=== PATIENT | male | born 1950 | race Caucasian/White ===

== ENCOUNTER 2022-12-08 12:40 | Inpatient (IN) | payer MEDICARE ==
[~2022-12-08] VITALS: Ht 172.7 cm; Wt 54.5 kg
[2022-12-08] VITALS (18 sets, daily range): BP systolic 108–149; BP diastolic 58–79; TEMP 97.5–98.9; O2SAT 88–99
[2022-12-08] MEDS ORDERED: ASPI81TA26 PO (12:52)
[2022-12-08] MEDS ORDERED: NOXI1TAB PO (12:52)
[2022-12-08 15:16] LABS: BASO % 0.5 % (0.0-1.0); EOS % 0.2 % (0.0-3.0); HEMATOCRIT 35.2 % (42.0-52.0); HEMOGLOBIN 11.6 g/dl (13.5-17.5); LYMPH # 1.6 10^3/uL (1.5-5.0); LYMPH % 18.9 % (24.0-44.0); MEAN CORPUSCULAR HEMOGLOBIN 32.6 pg (27.0-33.0); MEAN CORPUSCULAR VOLUME 98.9 fl (80.0-96.0); MONO # 1.1 10^3/uL (0.0-0.8); MONO % 13.1 % (2.0-8.0); NEUTROPHILS # 5.7 10^3/uL (1.5-8.5); NEUTROPHILS % 66.8 % (36.0-66.0); PLATELET COUNT, AUTOMATED 137 10^3/uL (150-450); RED BLOOD COUNT 3.56 10^6/uL (4.30-6.10); WHITE BLOOD COUNT 8.5 10^3/uL (4.0-10.0)
[2022-12-08 15:31] LABS: ERYTHROCYTE SEDIMENTATION RATE 15 mm/hr (0-20)
[2022-12-08 15:40] LABS: LIPASE 13 U/L (12-53)
[2022-12-08 15:41] LABS: CK-MB VALUE MASS 4.6 NG/ML (<3.6)
[2022-12-08 15:45] LABS: ALBUMIN 2.5 G/DL (3.2-5.2); ALKALINE PHOSPHATASE 226 U/L (46-116); ALT/SGPT 19 U/L (7.0-40); AST/SGOT 24 U/L (<34); BILIRUBIN,DIRECT 0.5 MG/DL (<0.4); BILIRUBIN,TOTAL 0.8 MG/DL (0.3-1.2); BLOOD UREA NITROGEN 9 MG/DL (9-23); CALCIUM LEVEL 8.4 MG/DL (8.3-10.6); CARBON DIOXIDE LEVEL 29 MMOL/L (20-31); CHLORIDE LEVEL 103 MMOL/L (98-107); CPK CREATINE PHOSPHOKINASE 191 U/L (46-171); CREATININE FOR GFR 0.64 MG/DL (0.70-1.30); GLOMERULAR FILTRATION RATE > 60.0 (>42); GLUCOSE, FASTING 142 MG/DL (74-106); POTASSIUM SERUM 2.8 MMOL/L (3.5-5.1); SODIUM LEVEL 140 MMOL/L (136-145); TOTAL PROTEIN 5.9 G/DL (5.7-8.2)
[2022-12-08 16:19] LABS: INR 1.07; PARTIAL THROMBOPLASTIN TIME 28.8 SECONDS (24.8-34.2); PROTHROMBIN TIME 14.1 SECONDS (12.5-14.5)
[2022-12-08] MEDS ORDERED: KCL 10MEQ/100ML SWI (KRUN) 10 MEQ in IV 1 EA IV ONE (16:20)
[2022-12-08] MEDS ORDERED: POTASSIUM CHLORIDE 10MEQ SR TABLET PO ONE ×2 (16:20→17:55)
[2022-12-08 16:36] LABS: MAGNESIUM LEVEL 1.7 MG/DL (1.8-2.4)
[2022-12-08] MEDS ORDERED: ISOVUE-370 76% 100ML VIAL As Ordered ONE (17:39)
[2022-12-08] MEDS ORDERED: FUROSEMIDE 20MG/2ML VIAL IV ONE (17:55)
[2022-12-08] MEDS ORDERED: ACETAMINOPHEN TAB 650MG DOSE (2X325MG) PO PRN (17:55)
[2022-12-08] MEDS ORDERED: RIVAROXABAN 10MG TAB (XARELTO) PO SCH (18:00)
[2022-12-08 18:28] LABS: CHOLESTEROL LEVEL 90 MG/DL (<200); CHOLESTEROL RISK RATIO 1.89 (<5); HDL CHOLESTEROL 47.4 MG/DL (>40); NON-HDL-C 42.6 MG/DL; TRIGLYCERIDES LEVEL 58 MG/DL (<150)
[2022-12-08] MEDS ORDERED: MED REC IN PROGRESS XX SCH (18:35)
[2022-12-08 18:36] LABS: PROCALCITONIN <0.04 ng/ml
[2022-12-08] MEDS ORDERED: HOME MED LIST COMPLETE! XX SCH (18:45)
[2022-12-08] MEDS ORDERED: AZITHROMYCIN 250MG TABLET PO SCH (19:00)
[2022-12-08] MEDS: MAG SULF 1GM/100ML (MAG RUN) 1 GM in IV 1 EA IV SCH ×3 (19:00→20:00)
[2022-12-08 19:04] LABS: HEMOGLOBIN A1c 6.6 % (4.0-6.0)
[2022-12-08 19:08] LABS: INR 1.17; PROTHROMBIN TIME 15.1 SECONDS (12.5-14.5)
[2022-12-08] MEDS: IPRATROPIUM 0.5MG/ALBUTEROL 2.5MG INH SOL UD 3ML (DUONEB) NEB SCH (19:36)
[2022-12-08 19:59] LABS: HIV 1&2 SCREEN NEGATIVE (NEGATIVE)
[2022-12-08 20:06] LABS: HEPATITIS B CORE ANTIBODY IGM NEGATIVE (NEGATIVE)
[2022-12-08 20:08] LABS: BLOOD UREA NITROGEN 9 MG/DL (9-23); CALCIUM LEVEL 7.8 MG/DL (8.3-10.6); CARBON DIOXIDE LEVEL 32 MMOL/L (20-31); CHLORIDE LEVEL 104 MMOL/L (98-107); CREATININE FOR GFR 0.66 MG/DL (0.70-1.30); GLOMERULAR FILTRATION RATE > 60.0 (>42); GLUCOSE, FASTING 97 MG/DL (74-106); POTASSIUM SERUM 2.9 MMOL/L (3.5-5.1); SODIUM LEVEL 139 MMOL/L (136-145)
[2022-12-08] MEDS ORDERED: MIDAZOLAM INJ 2MG/2ML VIAL As Ordered ONE ×4 (20:08→21:16)
[2022-12-08] MEDS ORDERED: LIDOCAINE 2% MDV 20ML VIAL As Ordered ONE (20:09)
[2022-12-08] MEDS ORDERED: LIDOCAINE 1% MDV 20ML VIAL As Ordered ONE (20:25)
[2022-12-08] MEDS: VANICREAM MOISTURIZING SKIN CREAM 113GM TUBE TOP SCH (21:00)
[2022-12-08] MEDS: DOCUSATE SODIUM 100MG CAPSULE PO SCH (21:00)
[2022-12-08] MEDS ORDERED: ONDANSETRON 4MG 2ML VIAL As Ordered ONE (21:16)
[2022-12-08] MEDS ORDERED: ROCURONIUM BROMIDE 50MG/5ML VIAL As Ordered ONE (21:16)
[2022-12-08] MEDS ORDERED: fentaNYL 100 MCG/2 ML INJECTION As Ordered ONE ×2 (21:16→23:06)
[2022-12-08] MEDS ORDERED: KETAMINE HCL 200MG/20ML VIAL As Ordered ONE (21:16)
[2022-12-08] MEDS ORDERED: propofoL 200 MG/20 ML VIAL As Ordered ONE (21:16)
[2022-12-08] MEDS ORDERED: LIDOCAINE 2% 100MG/5ML SDV (FOR ANES.) As Ordered ONE (21:16)
[2022-12-08] MEDS ORDERED: PHENYLEPHRINE 10MG/ML 1ML VIAL As Ordered ONE (21:23)
[2022-12-08] MEDS ORDERED: ceFAZolin 2 GM/D5W 50 ML IV BAG As Ordered ONE ×2 (21:41→21:44)
[2022-12-08] MEDS ORDERED: MUPIROCIN 2% OINT 22 GM TUBE As Ordered ONE (21:43)
[2022-12-08] MEDS ORDERED: MIDAZOLAM INJ 2MG/2ML VIAL IV STA ×3 (21:55→22:30)
[2022-12-08] MEDS ORDERED: LIDOCAINE 1% MDV 20ML VIAL SC ONE (21:55)
[2022-12-08] MEDS ORDERED: MIDAZOLAM INJ 2MG/2ML VIAL IV ONE (21:55)
[2022-12-08] MEDS ORDERED: ETOMIDATE INJ 20MG/10ML VIAL As Ordered ONE (22:00)
[2022-12-08] MEDS ORDERED: ACETAMINOPHEN 1000MG 100ML IV BAG As Ordered ONE (22:35)
[2022-12-08] MEDS ORDERED: ePHEDrine SULFATE 25 MG/5 ML(5MG/ML) SYRINGE As Ordered ONE (23:15)
[2022-12-08] MEDS ORDERED: BISACODYL 10MG SUPP PR PRN (23:50)
[2022-12-08] MEDS ORDERED: LEVALBUTEROL 1.25MG/3ML NEB SOLN NEB PRN (23:50)
[2022-12-08] MEDS ORDERED: PERCOCET 5MG/325MG TAB PO PRN ×2 (23:50)
[2022-12-08] MEDS ORDERED: ONDANSETRON 4MG 2ML VIAL IV PRN (23:50)
[2022-12-09] VITALS (33 sets, daily range): BP systolic 83–155; BP diastolic 48–92; TEMP 96.8–98; O2SAT 91–99
[2022-12-09] MEDS ORDERED: PROPOFOL 1,000 MG/100 ML VIAL As Ordered ONE (00:13)
[2022-12-09] MEDS ORDERED: MIDAZOLAM 5MG/ML 1ML VIAL IV PRN (00:15)
[2022-12-09] MEDS: propofoL 1,000 MG in IV 1 EA IV SCH ×2 (00:17→12:15)
[2022-12-09 00:34] LABS: ABG BASE EXCESS 3.2 (-2.0-2.0); ABG O2 SATURATION 92.6 % (95.0-99.0); ABG PARTIAL PRESSURE CO2 33.3 mmHg (35.0-45.0); ABG PARTIAL PRESSURE O2 61.7 mmHg (75.0-100.0); ABG STANDARD HCO3 27.3 MMOL/L. (22.0-26.0)
[2022-12-09] MEDS ORDERED: KCL 20MEQ in NS 1000ML 1,000 ML IV SCH (00:50)
[2022-12-09] MEDS: LEVALBUTEROL 1.25MG/3ML NEB SOLN NEB SCH ×4 (01:21→20:35)
[2022-12-09] MEDS: IPRATROPIUM 0.5MG/ALBUTEROL 2.5MG INH SOL UD 3ML (DUONEB) NEB SCH (01:22)
[2022-12-09] MEDS: KCL 20MEQ IN D5/NS 1000ML 1,000 ML IV SCH ×2 (01:30→13:45)
[2022-12-09] MEDS: KETOROLAC 30 MG/ML 1ML VIAL IV SCH ×4 (01:33→19:11)
[2022-12-09] MEDS ORDERED: MIDAZOLAM 100MG/100ML-0.9%NACL 100 MG in IV 1 EA IV SCH (04:20)
[2022-12-09 04:30] LABS: ABG BASE EXCESS 3.1 (-2.0-2.0); ABG HCO3 25.7 MMOL/L (22.0-26.0); ABG O2 SATURATION 94.9 % (95.0-99.0); ABG PARTIAL PRESSURE CO2 32.4 mmHg (35.0-45.0); ABG PARTIAL PRESSURE O2 71.8 mmHg (75.0-100.0); ABG STANDARD HCO3 27.2 MMOL/L. (22.0-26.0); ABG TOTAL CO2 26.7 MMOL/L (23.0-31.0); ABG pH (ARTERIAL) 7.517 UNITS (7.350-7.450)
[2022-12-09] MEDS ORDERED: HYDROMORPHONE HCL 0.5 MG/ 0.5 ML SYRINGE IV PRN (04:40)
[2022-12-09] MEDS ORDERED: MIDAZOLAM INJ 2MG/2ML VIAL IV ONE (05:00)
[2022-12-09 05:13] LABS: HEMATOCRIT 32.3 % (42.0-52.0); HEMOGLOBIN 11.2 g/dl (13.5-17.5); MEAN CORPUSCULAR HGB CONC 34.7 g/dl (32.0-36.5); MEAN CORPUSCULAR VOLUME 95.3 fl (80.0-96.0); PLATELET COUNT, AUTOMATED 149 10^3/uL (150-450); RED BLOOD COUNT 3.39 10^6/uL (4.30-6.10); WHITE BLOOD COUNT 11.3 10^3/uL (4.0-10.0)
[2022-12-09 05:25] LABS: BLOOD UREA NITROGEN 10 MG/DL (9-23); CARBON DIOXIDE LEVEL 27 MMOL/L (20-31); CHLORIDE LEVEL 103 MMOL/L (98-107); GLOMERULAR FILTRATION RATE > 60.0 (>42); GLUCOSE, FASTING 184 MG/DL (74-106); MAGNESIUM LEVEL 1.7 MG/DL (1.8-2.4); POTASSIUM SERUM 3.7 MMOL/L (3.5-5.1); SODIUM LEVEL 137 MMOL/L (136-145)
[2022-12-09 05:58] LABS: LYMPHOCYTES 5 % (16-44); MONOCYTES 1 % (0-5); NEUTROPHILS 94 % (28-66); PLATELET ESTIMATE DECREASED (NORMAL)
[2022-12-09 05:59] LABS: ANISOCYTOSIS 1+; BURR CELLS 1+; POLYCHROMASIA 1+
[2022-12-09 06:24] LABS: ABG BASE EXCESS 2.2 (-2.0-2.0); ABG HCO3 25.7 MMOL/L (22.0-26.0); ABG O2 SATURATION 95.9 % (95.0-99.0); ABG PARTIAL PRESSURE CO2 36.4 mmHg (35.0-45.0); ABG PARTIAL PRESSURE O2 82.7 mmHg (75.0-100.0); ABG STANDARD HCO3 26.4 MMOL/L. (22.0-26.0); ABG TOTAL CO2 26.8 MMOL/L (23.0-31.0); ABG pH (ARTERIAL) 7.467 UNITS (7.350-7.450)
[2022-12-09 07:10] LABS: AMPHETAMINES URINE REFLEX NEGATIVE (NEGATIVE)
[2022-12-09 07:11] LABS: BARBITURATES URINE REFLEX NEGATIVE (NEGATIVE); BENZODIAZEPINES URINE REFLEX PENDING CONFIRMATION (NEGATIVE); CANNABINOIDS URINE REFLEX NEGATIVE (NEGATIVE); COCAINE METABOLITE URINE REFLE NEGATIVE (NEGATIVE); METHADONE URINE REFLEX NEGATIVE (NEGATIVE); OPIATES URINE REFLEX NEGATIVE (NEGATIVE); PHENCYCLIDINE URINE REFLEX NEGATIVE (NEGATIVE)
[2022-12-09 07:58] LABS: THYROID STIMULATING HORMONE 2.053 uIU/ML (0.55-4.78)
[2022-12-09 07:59] LABS: FREE T4 1.09 NG/DL (0.89-1.76)
[2022-12-09] MEDS: DOCUSATE SODIUM 100MG CAPSULE PO SCH ×2 (09:00→20:23)
[2022-12-09] MEDS ORDERED: ASPIRIN 81MG CHEW TABLET PO SCH (09:00)
[2022-12-09] MEDS ORDERED: FUROSEMIDE 40MG/4ML VIAL IV SCH (09:00)
[2022-12-09] MEDS ORDERED: predniSONE 20 MG TAB PO SCH (09:00)
[2022-12-09] MEDS ORDERED: PANTOPRAZOLE 40MG VIAL IV SCH (09:00)
[2022-12-09] MEDS: HEPARIN SOD (PORCINE) 5000UNITS/ML 1ML VIAL/SYRINGE SC SCH ×2 (09:11→20:23)
[2022-12-09] MEDS: VANICREAM MOISTURIZING SKIN CREAM 113GM TUBE TOP SCH ×2 (09:11→20:23)
[2022-12-09] MEDS: NICOTINE 21MG/24HR 1 EA TRANSDERMAL TD SCH (09:12)
[2022-12-09 12:35] LABS: ABG HCO3 25.6 MMOL/L (22.0-26.0); ABG O2 SATURATION 89.3 % (95.0-99.0); ABG PARTIAL PRESSURE CO2 40.8 mmHg (35.0-45.0); ABG PARTIAL PRESSURE O2 59.5 mmHg (75.0-100.0); ABG STANDARD HCO3 25.2 MMOL/L. (22.0-26.0); ABG TOTAL CO2 26.9 MMOL/L (23.0-31.0); ABG pH (ARTERIAL) 7.416 UNITS (7.350-7.450)
[2022-12-09] MEDS: cefTRIAXone SOD 2 GM in D5W MINI-BAG PLUS 50 ML IV SCH (19:12)
[2022-12-09] MEDS ORDERED: NS 500 ML IV ONE (22:15)
[2022-12-10] VITALS (15 sets, daily range): BP systolic 92–144; BP diastolic 59–85; TEMP 97.3–98.1; O2SAT 90–100
[2022-12-10] MEDS: KETOROLAC 30 MG/ML 1ML VIAL IV SCH ×4 (00:50→19:20)
[2022-12-10] MEDS: LEVALBUTEROL 1.25MG/3ML NEB SOLN NEB SCH ×4 (01:18→20:04)
[2022-12-10] MEDS ORDERED: NS 500 ML IV ONE (02:25)
[2022-12-10 05:03] LABS: BASO % 0.1 % (0.0-1.0); HEMATOCRIT 29.7 % (42.0-52.0); LYMPH % 13.4 % (24.0-44.0); MEAN CORPUSCULAR HGB CONC 33.7 g/dl (32.0-36.5); MONO # 1.4 10^3/uL (0.0-0.8); MONO % 9.4 % (2.0-8.0); NEUTROPHILS # 11.3 10^3/uL (1.5-8.5); NEUTROPHILS % 76.6 % (36.0-66.0); PLATELET COUNT, AUTOMATED 135 10^3/uL (150-450); RED BLOOD COUNT 3.03 10^6/uL (4.30-6.10); WHITE BLOOD COUNT 14.7 10^3/uL (4.0-10.0)
[2022-12-10 05:22] LABS: BLOOD UREA NITROGEN 12 MG/DL (9-23); CALCIUM LEVEL 7.8 MG/DL (8.3-10.6); CARBON DIOXIDE LEVEL 28 MMOL/L (20-31); CHLORIDE LEVEL 106 MMOL/L (98-107); CREATININE FOR GFR 0.74 MG/DL (0.70-1.30); GLOMERULAR FILTRATION RATE > 60.0 (>42); GLUCOSE, FASTING 300 MG/DL (74-106); MAGNESIUM LEVEL 1.7 MG/DL (1.8-2.4); POTASSIUM SERUM 3.9 MMOL/L (3.5-5.1); SODIUM LEVEL 141 MMOL/L (136-145)
[2022-12-10] MEDS: KCL 20MEQ IN D5/NS 1000ML 1,000 ML IV SCH (06:02)
[2022-12-10 07:55] LABS: PH BODY FLUID > 7.800 UNITS (NOT ESTABLISHED); SOURCE, BODY FLUID pH PLEURAL
[2022-12-10 07:57] LABS: PH BODY FLUID > 7.800 UNITS (NOT ESTABLISHED); SOURCE, BODY FLUID pH PERICARDIAL
[2022-12-10 08:14] LABS: APPEARANCE, BODY FLUID TURBID (CLEAR); PLEURAL FL COLOR RED (COLORLESS); SOURCE, BODY FLUID PLEURAL
[2022-12-10 08:16] LABS: APPEARANCE, BODY FLUID TURBID (CLEAR); SOURCE, BODY FLUID PERICARDIAL; SOURCE, BODY FLUID ALBUMIN PERICARDIAL
[2022-12-10 08:21] LABS: SOURCE, BODY FLUID GLUCOSE PERICARDIAL
[2022-12-10 08:22] LABS: LDH, BODY FLUID 574 U/L (NOT ESTABLISHED); SOURCE, BODY FLUID LDH PERICARDIAL
[2022-12-10 08:23] LABS: SOURCE, BODY FLUID TOT PROTEIN PERICARDIAL; TOTAL PROTEIN, BODY FLUID 3.8 G/DL (NOT ESTABLISHED)
[2022-12-10 08:37] LABS: SOURCE, BODY FLUID LDH PLEURAL
[2022-12-10 08:48] LABS: LDH, BODY FLUID 2968 U/L (NOT ESTABLISHED)
[2022-12-10 08:49] LABS: AMYLASE, BODY FLUID 22 U/L (NOT ESTABLISHED); SOURCE, BODY FLUID AMYLASE PLEURAL; SOURCE, BODY FLUID GLUCOSE PLEURAL; SOURCE, BODY FLUID TOT PROTEIN PLEURAL; TOTAL PROTEIN, BODY FLUID 5.3 G/DL (NOT ESTABLISHED)
[2022-12-10] MEDS: HEPARIN SOD (PORCINE) 5000UNITS/ML 1ML VIAL/SYRINGE SC SCH ×3 (09:00→20:16)
[2022-12-10] MEDS: NICOTINE 21MG/24HR 1 EA TRANSDERMAL TD SCH (09:33)
[2022-12-10] MEDS: PANTOPRAZOLE 40MG TAB (PROTONIX) PO SCH (09:33)
[2022-12-10] MEDS: DOCUSATE SODIUM 100MG CAPSULE PO SCH ×2 (09:33→20:16)
[2022-12-10] MEDS: VANICREAM MOISTURIZING SKIN CREAM 113GM TUBE TOP SCH ×2 (09:34→20:17)
[2022-12-10] MEDS: methylPREDNISolone 40MG 1ML VIAL IV SCH ×2 (11:20→17:24)
[2022-12-10] MEDS ORDERED: GLUCAGON INJ 1MG VIAL SC PRN (13:55)
[2022-12-10] MEDS ORDERED: GLUCOSE 4GM CHEW TABLET PO PRN (13:55)
[2022-12-10] MEDS ORDERED: DEXTROSE 50% 50ML SYRINGE IV PRN (13:55)
[2022-12-10] MEDS: MAG SULF 1GM/100ML (MAG RUN) 1 GM in IV 1 EA IV SCH ×2 (14:07→15:14)
[2022-12-10] MEDS: INSULIN LISPRO (NovoLOG) PER UNIT SC SCH ×2 (17:23→20:25)
[2022-12-10] MEDS: cefTRIAXone SOD 2 GM in D5W MINI-BAG PLUS 50 ML IV SCH (17:24)
[2022-12-11] VITALS (16 sets, daily range): BP systolic 102–151; BP diastolic 62–86; TEMP 97.6–98.6; O2SAT 88–100
[2022-12-11] MEDS: KCL 20MEQ IN D5/NS 1000ML 1,000 ML IV SCH ×2 (00:05→07:26)
[2022-12-11] MEDS: KETOROLAC 30 MG/ML 1ML VIAL IV SCH ×4 (00:05→18:34)
[2022-12-11] MEDS: LEVALBUTEROL 1.25MG/3ML NEB SOLN NEB SCH ×4 (01:30→21:05)
[2022-12-11] MEDS: methylPREDNISolone 40MG 1ML VIAL IV SCH ×3 (02:09→18:34)
[2022-12-11 06:08] LABS: ABG BASE EXCESS 0.7 (-2.0-2.0); ABG HCO3 24.3 MMOL/L (22.0-26.0); ABG O2 SATURATION 91.9 % (95.0-99.0); ABG PARTIAL PRESSURE CO2 35.4 mmHg (35.0-45.0); ABG PARTIAL PRESSURE O2 61.5 mmHg (75.0-100.0); ABG TOTAL CO2 25.4 MMOL/L (23.0-31.0); ABG pH (ARTERIAL) 7.455 UNITS (7.350-7.450)
[2022-12-11 07:20] LABS: BASO % 0.1 % (0.0-1.0); HEMATOCRIT 31.7 % (42.0-52.0); HEMOGLOBIN 10.5 g/dl (13.5-17.5); LYMPH # 0.8 10^3/uL (1.5-5.0); MEAN CORPUSCULAR HEMOGLOBIN 33.2 pg (27.0-33.0); MEAN CORPUSCULAR HGB CONC 33.1 g/dl (32.0-36.5); MEAN CORPUSCULAR VOLUME 100.3 fl (80.0-96.0); MONO # 0.5 10^3/uL (0.0-0.8); MONO % 3.7 % (2.0-8.0); NEUTROPHILS % 89.8 % (36.0-66.0); PLATELET COUNT, AUTOMATED 137 10^3/uL (150-450); RED BLOOD COUNT 3.16 10^6/uL (4.30-6.10); WHITE BLOOD COUNT 13.4 10^3/uL (4.0-10.0)
[2022-12-11 07:39] LABS: LDH LACTATE DEHYDROGENASE 249 U/L (120-246)
[2022-12-11 07:41] LABS: ALBUMIN 2.3 G/DL (3.2-5.2); BLOOD UREA NITROGEN 13 MG/DL (9-23); CALCIUM LEVEL 7.9 MG/DL (8.3-10.6); CARBON DIOXIDE LEVEL 26 MMOL/L (20-31); CHLORIDE LEVEL 105 MMOL/L (98-107); CREATININE FOR GFR 0.74 MG/DL (0.70-1.30); GLOMERULAR FILTRATION RATE > 60.0 (>42); GLUCOSE, FASTING 343 MG/DL (74-106); PHOSPHORUS LEVEL 2.2 MG/DL (2.4-5.1); POTASSIUM SERUM 5.3 MMOL/L (3.5-5.1); SODIUM LEVEL 138 MMOL/L (136-145)
[2022-12-11 07:48] LABS: ALBUMIN 2.4 G/DL (3.2-5.2); ALKALINE PHOSPHATASE 172 U/L (46-116); ALT/SGPT 15 U/L (7.0-40); AST/SGOT 19 U/L (<34); BILIRUBIN,TOTAL 0.4 MG/DL (0.3-1.2); BLOOD UREA NITROGEN 14 MG/DL (9-23); BLOOD UREA NITROGEN 9 MG/DL (9-23); CALCIUM LEVEL 8.7 MG/DL (8.3-10.6); CARBON DIOXIDE LEVEL 25 MMOL/L (20-31); CARBON DIOXIDE LEVEL 26 MMOL/L (20-31); CHLORIDE LEVEL 104 MMOL/L (98-107); CHOLESTEROL LEVEL 96 MG/DL (<200); CPK CREATINE PHOSPHOKINASE 228 U/L (46-171); CREATININE FOR GFR 0.74 MG/DL (0.70-1.30); CREATININE FOR GFR 0.76 MG/DL (0.70-1.30); GLOMERULAR FILTRATION RATE > 60.0 (>42); GLUCOSE, FASTING 335 MG/DL (74-106); GLUCOSE, FASTING 344 MG/DL (74-106); MAGNESIUM LEVEL 1.9 MG/DL (1.8-2.4); PHOSPHORUS LEVEL 2.2 MG/DL (2.4-5.1); POTASSIUM SERUM 5.4 MMOL/L (3.5-5.1); POTASSIUM SERUM 5.6 MMOL/L (3.5-5.1); SODIUM LEVEL 135 MMOL/L (136-145); SODIUM LEVEL 136 MMOL/L (136-145); TOTAL PROTEIN 5.6 G/DL (5.7-8.2); TRIGLYCERIDES LEVEL 55 MG/DL (<150)
[2022-12-11] MEDS: HEPARIN SOD (PORCINE) 5000UNITS/ML 1ML VIAL/SYRINGE SC SCH ×2 (08:17→20:22)
[2022-12-11] MEDS: PANTOPRAZOLE 40MG TAB (PROTONIX) PO SCH (08:17)
[2022-12-11] MEDS: DOCUSATE SODIUM 100MG CAPSULE PO SCH ×2 (08:17→20:22)
[2022-12-11] MEDS: NICOTINE 21MG/24HR 1 EA TRANSDERMAL TD SCH (08:18)
[2022-12-11] MEDS: INSULIN LISPRO (NovoLOG) PER UNIT SC SCH ×4 (08:18→20:22)
[2022-12-11] MEDS: VANICREAM MOISTURIZING SKIN CREAM 113GM TUBE TOP SCH ×2 (08:19→20:22)
[2022-12-11] MEDS ORDERED: FUROSEMIDE 40MG/4ML VIAL IV ONE (08:25)
[2022-12-11] MEDS ORDERED: LEVEMIR (INSULIN DETEMIR) 1 UNITS/0.01ML SC SCH (09:00)
[2022-12-11 09:21] LABS: HEMOGLOBIN A1c 6.8 % (4.0-6.0)
[2022-12-11] MEDS ORDERED: SODIUM PHOSPHATE INJ 30 MMOL in D5W 500 ML IV ONE (11:00)
[2022-12-11] MEDS: COLCHICINE 0.6 MG TABLET PO SCH (11:37)
[2022-12-11] MEDS: MOM 30ML SUSPENSION UDC PO PRN (18:34)
[2022-12-11] MEDS: cefTRIAXone SOD 2 GM in D5W MINI-BAG PLUS 50 ML IV SCH (18:35)
[2022-12-12] VITALS (15 sets, daily range): BP systolic 104–134; BP diastolic 57–81; TEMP 97.6–98.6; O2SAT 85–100
[2022-12-12] MEDS: KETOROLAC 30 MG/ML 1ML VIAL IV SCH ×4 (00:25→18:45)
[2022-12-12] MEDS: methylPREDNISolone 40MG 1ML VIAL IV SCH ×3 (01:52→20:09)
[2022-12-12] MEDS: LEVALBUTEROL 1.25MG/3ML NEB SOLN NEB SCH ×4 (02:00→19:13)
[2022-12-12 05:37] LABS: BASO % 0.1 % (0.0-1.0); HEMATOCRIT 29.5 % (42.0-52.0); HEMOGLOBIN 9.7 g/dl (13.5-17.5); LYMPH # 1.2 10^3/uL (1.5-5.0); LYMPH % 8.7 % (24.0-44.0); MEAN CORPUSCULAR HEMOGLOBIN 32.8 pg (27.0-33.0); MEAN CORPUSCULAR HGB CONC 32.9 g/dl (32.0-36.5); MEAN CORPUSCULAR VOLUME 99.7 fl (80.0-96.0); MONO # 0.7 10^3/uL (0.0-0.8); MONO % 5.1 % (2.0-8.0); NEUTROPHILS # 11.4 10^3/uL (1.5-8.5); NEUTROPHILS % 85.5 % (36.0-66.0); PLATELET COUNT, AUTOMATED 128 10^3/uL (150-450); RED BLOOD COUNT 2.96 10^6/uL (4.30-6.10); WHITE BLOOD COUNT 13.3 10^3/uL (4.0-10.0)
[2022-12-12 05:51] LABS: ABG BASE EXCESS 3.4 (-2.0-2.0); ABG HCO3 27.1 MMOL/L (22.0-26.0); ABG O2 SATURATION 92.9 % (95.0-99.0); ABG PARTIAL PRESSURE CO2 37.8 mmHg (35.0-45.0); ABG PARTIAL PRESSURE O2 63.1 mmHg (75.0-100.0); ABG STANDARD HCO3 27.4 MMOL/L. (22.0-26.0); ABG TOTAL CO2 28.3 MMOL/L (23.0-31.0); ABG pH (ARTERIAL) 7.474 UNITS (7.350-7.450)
[2022-12-12 05:58] LABS: BLOOD UREA NITROGEN 15 MG/DL (9-23); CALCIUM LEVEL 8.6 MG/DL (8.3-10.6); CARBON DIOXIDE LEVEL 28 MMOL/L (20-31); CHLORIDE LEVEL 104 MMOL/L (98-107); CREATININE FOR GFR 0.67 MG/DL (0.70-1.30); GLOMERULAR FILTRATION RATE > 60.0 (>42); GLUCOSE, FASTING 242 MG/DL (74-106); MAGNESIUM LEVEL 2.1 MG/DL (1.8-2.4); PHOSPHORUS LEVEL 2.8 MG/DL (2.4-5.1); POTASSIUM SERUM 4.4 MMOL/L (3.5-5.1); SODIUM LEVEL 138 MMOL/L (136-145)
[2022-12-12] MEDS: INSULIN LISPRO (NovoLOG) PER UNIT SC SCH ×4 (09:28→20:10)
[2022-12-12] MEDS: NICOTINE 21MG/24HR 1 EA TRANSDERMAL TD SCH (09:28)
[2022-12-12] MEDS: VANICREAM MOISTURIZING SKIN CREAM 113GM TUBE TOP SCH ×2 (09:29→20:12)
[2022-12-12] MEDS: PANTOPRAZOLE 40MG TAB (PROTONIX) PO SCH (09:29)
[2022-12-12] MEDS: DOCUSATE SODIUM 100MG CAPSULE PO SCH ×2 (09:29→20:09)
[2022-12-12] MEDS: HEPARIN SOD (PORCINE) 5000UNITS/ML 1ML VIAL/SYRINGE SC SCH ×2 (09:29→20:11)
[2022-12-12] MEDS: COLCHICINE 0.6 MG TABLET PO SCH (09:29)
[2022-12-12] MEDS ORDERED: LEVEMIR (INSULIN DETEMIR) 1 UNITS/0.01ML SC SCH (10:43)
[2022-12-12] MEDS ORDERED: FUROSEMIDE 40MG/4ML VIAL IV ONE (13:05)
[2022-12-12] MEDS: cefTRIAXone SOD 2 GM in D5W MINI-BAG PLUS 50 ML IV SCH (17:39)
[2022-12-12] MEDS: FUROSEMIDE 20MG/2ML VIAL IV SCH (19:57)
[2022-12-12] MEDS: MOM 30ML SUSPENSION UDC PO PRN (20:10)
[2022-12-12] MEDS: LEVEMIR (INSULIN DETEMIR) 1 UNITS/0.01ML SC SCH (20:11)
[2022-12-13] VITALS (16 sets, daily range): BP systolic 100–133; BP diastolic 52–83; TEMP 97.5–99.3; O2SAT 86–97
[2022-12-13] MEDS: KETOROLAC 30 MG/ML 1ML VIAL IV SCH ×4 (00:42→18:07)
[2022-12-13] MEDS: LEVALBUTEROL 1.25MG/3ML NEB SOLN NEB SCH ×4 (01:11→19:03)
[2022-12-13] MEDS: HYDROMORPHONE HCL 0.5 MG/ 0.5 ML SYRINGE IV PRN (02:30)
[2022-12-13 04:47] LABS: BASO % 0.1 % (0.0-1.0); HEMATOCRIT 27.1 % (42.0-52.0); LYMPH # 1.4 10^3/uL (1.5-5.0); LYMPH % 11.8 % (24.0-44.0); MEAN CORPUSCULAR HEMOGLOBIN 33.2 pg (27.0-33.0); MEAN CORPUSCULAR HGB CONC 33.2 g/dl (32.0-36.5); MONO # 0.8 10^3/uL (0.0-0.8); MONO % 6.4 % (2.0-8.0); NEUTROPHILS # 9.7 10^3/uL (1.5-8.5); NEUTROPHILS % 81.2 % (36.0-66.0); PLATELET COUNT, AUTOMATED 134 10^3/uL (150-450); RED BLOOD COUNT 2.71 10^6/uL (4.30-6.10)
[2022-12-13 05:14] LABS: ALBUMIN 3.6 G/DL (3.2-5.2); ALKALINE PHOSPHATASE 130 U/L (46-116); ALT/SGPT 18 U/L (7.0-40); AST/SGOT 17 U/L (<34); BILIRUBIN,TOTAL 0.4 MG/DL (0.3-1.2); BLOOD UREA NITROGEN 16 MG/DL (9-23); CALCIUM LEVEL 8.7 MG/DL (8.3-10.6); CARBON DIOXIDE LEVEL 30 MMOL/L (20-31); CHLORIDE LEVEL 103 MMOL/L (98-107); CREATININE FOR GFR 0.79 MG/DL (0.70-1.30); GLOMERULAR FILTRATION RATE > 60.0 (>42); GLUCOSE, FASTING 99 MG/DL (74-106); MAGNESIUM LEVEL 2.6 MG/DL (1.8-2.4); PHOSPHORUS LEVEL 2.8 MG/DL (2.4-5.1); POTASSIUM SERUM 3.9 MMOL/L (3.5-5.1); SODIUM LEVEL 141 MMOL/L (136-145); TOTAL PROTEIN 5.9 G/DL (5.7-8.2)
[2022-12-13] MEDS: INSULIN LISPRO (NovoLOG) PER UNIT SC SCH ×4 (07:30→20:41)
[2022-12-13] MEDS: NICOTINE 21MG/24HR 1 EA TRANSDERMAL TD SCH (08:04)
[2022-12-13] MEDS: COLCHICINE 0.6 MG TABLET PO SCH (08:05)
[2022-12-13] MEDS: DOCUSATE SODIUM 100MG CAPSULE PO SCH ×2 (08:05→20:41)
[2022-12-13] MEDS: VANICREAM MOISTURIZING SKIN CREAM 113GM TUBE TOP SCH ×2 (08:05→20:42)
[2022-12-13] MEDS: HEPARIN SOD (PORCINE) 5000UNITS/ML 1ML VIAL/SYRINGE SC SCH ×2 (08:07→20:42)
[2022-12-13] MEDS: FUROSEMIDE 20MG/2ML VIAL IV SCH (08:07)
[2022-12-13] MEDS: methylPREDNISolone 40MG 1ML VIAL IV SCH ×2 (08:08→20:41)
[2022-12-13] MEDS: PANTOPRAZOLE 40MG TAB (PROTONIX) PO SCH (08:09)
[2022-12-13] MEDS ORDERED: FUROSEMIDE 40MG/4ML VIAL IV ONE (15:00)
[2022-12-13] MEDS: cefTRIAXone SOD 2 GM in D5W MINI-BAG PLUS 50 ML IV SCH (18:06)
[2022-12-13] MEDS: LEVEMIR (INSULIN DETEMIR) 1 UNITS/0.01ML SC SCH (20:41)
[2022-12-14] VITALS (8 sets, daily range): BP systolic 109–119; BP diastolic 57–80; TEMP 98.1–99.5; O2SAT 89–98
[2022-12-14] MEDS: LEVALBUTEROL 1.25MG/3ML NEB SOLN NEB SCH ×4 (01:21→19:50)
[2022-12-14 04:43] LABS: HEMATOCRIT 27.5 % (42.0-52.0); HEMOGLOBIN 9.2 g/dl (13.5-17.5); LYMPH % 8.7 % (24.0-44.0); MEAN CORPUSCULAR HEMOGLOBIN 33.1 pg (27.0-33.0); MEAN CORPUSCULAR HGB CONC 33.5 g/dl (32.0-36.5); MEAN CORPUSCULAR VOLUME 98.9 fl (80.0-96.0); MONO # 0.7 10^3/uL (0.0-0.8); MONO % 6.7 % (2.0-8.0); NEUTROPHILS # 9.1 10^3/uL (1.5-8.5); PLATELET COUNT, AUTOMATED 132 10^3/uL (150-450); RED BLOOD COUNT 2.78 10^6/uL (4.30-6.10); WHITE BLOOD COUNT 10.9 10^3/uL (4.0-10.0)
[2022-12-14 05:11] LABS: BLOOD UREA NITROGEN 19 MG/DL (9-23); CALCIUM LEVEL 8.7 MG/DL (8.3-10.6); CARBON DIOXIDE LEVEL 31 MMOL/L (20-31); CHLORIDE LEVEL 100 MMOL/L (98-107); CREATININE FOR GFR 0.85 MG/DL (0.70-1.30); GLOMERULAR FILTRATION RATE > 60.0 (>42); GLUCOSE, FASTING 234 MG/DL (74-106); MAGNESIUM LEVEL 2.2 MG/DL (1.8-2.4); POTASSIUM SERUM 3.8 MMOL/L (3.5-5.1); SODIUM LEVEL 137 MMOL/L (136-145)
[2022-12-14 05:15] LABS: ALBUMIN 3.5 G/DL (3.2-5.2); ALKALINE PHOSPHATASE 130 U/L (46-116); ALT/SGPT 20 U/L (7.0-40); AST/SGOT 11 U/L (<34); BILIRUBIN,TOTAL 0.4 MG/DL (0.3-1.2); BLOOD UREA NITROGEN 19 MG/DL (9-23); CALCIUM LEVEL 8.8 MG/DL (8.3-10.6); CARBON DIOXIDE LEVEL 31 MMOL/L (20-31); CHLORIDE LEVEL 99 MMOL/L (98-107); CREATININE FOR GFR 0.83 MG/DL (0.70-1.30); GLOMERULAR FILTRATION RATE > 60.0 (>42); GLUCOSE, FASTING 235 MG/DL (74-106); PHOSPHORUS LEVEL 3.1 MG/DL (2.4-5.1); POTASSIUM SERUM 3.7 MMOL/L (3.5-5.1); SODIUM LEVEL 137 MMOL/L (136-145); TOTAL PROTEIN 5.6 G/DL (5.7-8.2)
[2022-12-14 06:07] LABS: ABG BASE EXCESS 6.4 (-2.0-2.0); ABG HCO3 30.9 MMOL/L (22.0-26.0); ABG O2 SATURATION 92.3 % (95.0-99.0); ABG PARTIAL PRESSURE CO2 44.1 mmHg (35.0-45.0); ABG PARTIAL PRESSURE O2 64.1 mmHg (75.0-100.0); ABG STANDARD HCO3 30.2 MMOL/L. (22.0-26.0); ABG TOTAL CO2 32.2 MMOL/L (23.0-31.0); ABG pH (ARTERIAL) 7.463 UNITS (7.350-7.450)
[2022-12-14] MEDS ORDERED: FUROSEMIDE 40MG/4ML VIAL IV ONE (08:05)
[2022-12-14] MEDS: DOCUSATE SODIUM 100MG CAPSULE PO SCH ×2 (08:12→21:48)
[2022-12-14] MEDS ORDERED: CLINDAMYCIN 300 MG in IV 1 EA IV SCH (08:15)
[2022-12-14] MEDS: COLCHICINE 0.6 MG TABLET PO SCH (08:22)
[2022-12-14] MEDS: NICOTINE 21MG/24HR 1 EA TRANSDERMAL TD SCH (08:23)
[2022-12-14] MEDS: PANTOPRAZOLE 40MG TAB (PROTONIX) PO SCH (08:23)
[2022-12-14] MEDS: INSULIN LISPRO (NovoLOG) PER UNIT SC SCH ×4 (08:24→21:00)
[2022-12-14] MEDS: HEPARIN SOD (PORCINE) 5000UNITS/ML 1ML VIAL/SYRINGE SC SCH ×2 (08:24→21:48)
[2022-12-14] MEDS: methylPREDNISolone 40MG 1ML VIAL IV SCH (08:24)
[2022-12-14] MEDS: VANICREAM MOISTURIZING SKIN CREAM 113GM TUBE TOP SCH ×2 (08:25→21:50)
[2022-12-14] MEDS ORDERED: POTASSIUM CHLORIDE 10MEQ SR TABLET PO SCH (09:00)
[2022-12-14] MEDS: cefTRIAXone SOD 2 GM in D5W MINI-BAG PLUS 50 ML IV SCH (17:14)
[2022-12-14] MEDS: FUROSEMIDE 40MG/4ML VIAL IV SCH (17:14)
[2022-12-14] MEDS: LEVEMIR (INSULIN DETEMIR) 1 UNITS/0.01ML SC SCH (21:49)
[2022-12-15] VITALS (9 sets, daily range): BP systolic 100–132; BP diastolic 55–67; TEMP 97.3–98.9; O2SAT 90–95
[2022-12-15] MEDS: LEVALBUTEROL 1.25MG/3ML NEB SOLN NEB SCH ×4 (01:28→19:26)
[2022-12-15 04:26] LABS: BASO % 0.1 % (0.0-1.0); EOS % 0.2 % (0.0-3.0); LYMPH # 3.2 10^3/uL (1.5-5.0); LYMPH % 21.2 % (24.0-44.0); MEAN CORPUSCULAR HEMOGLOBIN 32.9 pg (27.0-33.0); MEAN CORPUSCULAR HGB CONC 33.3 g/dl (32.0-36.5); MEAN CORPUSCULAR VOLUME 98.7 fl (80.0-96.0); MONO % 13.2 % (2.0-8.0); NEUTROPHILS # 9.8 10^3/uL (1.5-8.5); NEUTROPHILS % 64.6 % (36.0-66.0); PLATELET COUNT, AUTOMATED 150 10^3/uL (150-450); RED BLOOD COUNT 3.04 10^6/uL (4.30-6.10); WHITE BLOOD COUNT 15.3 10^3/uL (4.0-10.0)
[2022-12-15 04:58] LABS: ALBUMIN 3.5 G/DL (3.2-5.2); ALKALINE PHOSPHATASE 141 U/L (46-116); ALT/SGPT 24 U/L (7.0-40); AST/SGOT 18 U/L (<34); BILIRUBIN,TOTAL 0.4 MG/DL (0.3-1.2); BLOOD UREA NITROGEN 15 MG/DL (9-23); CALCIUM LEVEL 8.7 MG/DL (8.3-10.6); CARBON DIOXIDE LEVEL 32 MMOL/L (20-31); CHLORIDE LEVEL 100 MMOL/L (98-107); CREATININE FOR GFR 0.77 MG/DL (0.70-1.30); GLOMERULAR FILTRATION RATE > 60.0 (>42); GLUCOSE, FASTING 117 MG/DL (74-106); MAGNESIUM LEVEL 1.7 MG/DL (1.8-2.4); POTASSIUM SERUM 3.4 MMOL/L (3.5-5.1); SODIUM LEVEL 140 MMOL/L (136-145); TOTAL PROTEIN 5.7 G/DL (5.7-8.2)
[2022-12-15] MEDS ORDERED: MAG SULF 1GM/100ML (MAG RUN) 1 GM in IV 1 EA IV ONE (07:00)
[2022-12-15] MEDS ORDERED: KCL 10MEQ/100ML SWI (KRUN) 10 MEQ in IV 1 EA IV ONE (08:00)
[2022-12-15] MEDS: DOCUSATE SODIUM 100MG CAPSULE PO SCH ×2 (09:00→21:00)
[2022-12-15] MEDS: INSULIN LISPRO (NovoLOG) PER UNIT SC SCH ×4 (09:05→21:00)
[2022-12-15] MEDS: predniSONE 20 MG TAB PO SCH (09:05)
[2022-12-15] MEDS: PANTOPRAZOLE 40MG TAB (PROTONIX) PO SCH (09:06)
[2022-12-15] MEDS: COLCHICINE 0.6 MG TABLET PO SCH (09:06)
[2022-12-15] MEDS: FUROSEMIDE 40MG/4ML VIAL IV SCH ×2 (09:06→17:41)
[2022-12-15] MEDS: HEPARIN SOD (PORCINE) 5000UNITS/ML 1ML VIAL/SYRINGE SC SCH ×2 (09:06→21:25)
[2022-12-15] MEDS: VANICREAM MOISTURIZING SKIN CREAM 113GM TUBE TOP SCH ×2 (09:06→21:00)
[2022-12-15] MEDS: NICOTINE 21MG/24HR 1 EA TRANSDERMAL TD SCH (09:07)
[2022-12-15] MEDS: POTASSIUM CHLORIDE 10MEQ SR TABLET PO SCH ×2 (09:09→21:26)
[2022-12-15] MEDS: cefTRIAXone SOD 2 GM in D5W MINI-BAG PLUS 50 ML IV SCH (17:40)
[2022-12-15] MEDS: LEVEMIR (INSULIN DETEMIR) 1 UNITS/0.01ML SC SCH (21:25)
[2022-12-16] VITALS (7 sets, daily range): BP systolic 89–119; BP diastolic 54–62; TEMP 97.6–98.6; O2SAT 92–98
[2022-12-16] MEDS: HYDROMORPHONE HCL 0.5 MG/ 0.5 ML SYRINGE IV PRN
[2022-12-16] MEDS: LEVALBUTEROL 1.25MG/3ML NEB SOLN NEB SCH ×4 (01:19→19:53)
[2022-12-16 05:28] LABS: HEMATOCRIT 28.5 % (42.0-52.0); HEMOGLOBIN 9.8 g/dl (13.5-17.5); MEAN CORPUSCULAR HEMOGLOBIN 33.3 pg (27.0-33.0); MEAN CORPUSCULAR HGB CONC 34.4 g/dl (32.0-36.5); MEAN CORPUSCULAR VOLUME 96.9 fl (80.0-96.0); PLATELET COUNT, AUTOMATED 154 10^3/uL (150-450); RED BLOOD COUNT 2.94 10^6/uL (4.30-6.10); WHITE BLOOD COUNT 11.7 10^3/uL (4.0-10.0)
[2022-12-16 05:49] LABS: BLOOD UREA NITROGEN 17 MG/DL (9-23); CALCIUM LEVEL 8.6 MG/DL (8.3-10.6); CARBON DIOXIDE LEVEL 38 MMOL/L (20-31); CHLORIDE LEVEL 94 MMOL/L (98-107); CREATININE FOR GFR 0.67 MG/DL (0.70-1.30); GLOMERULAR FILTRATION RATE > 60.0 (>42); GLUCOSE, FASTING 144 MG/DL (74-106); MAGNESIUM LEVEL 1.7 MG/DL (1.8-2.4); POTASSIUM SERUM 3.3 MMOL/L (3.5-5.1); SODIUM LEVEL 135 MMOL/L (136-145)
[2022-12-16] MEDS ORDERED: MAG SULF 1GM/100ML (MAG RUN) 1 GM in IV 1 EA IV ONE ×2 (08:00→12:00)
[2022-12-16] MEDS: COLCHICINE 0.6 MG TABLET PO SCH (08:09)
[2022-12-16] MEDS: HEPARIN SOD (PORCINE) 5000UNITS/ML 1ML VIAL/SYRINGE SC SCH ×2 (08:10→19:55)
[2022-12-16] MEDS: PANTOPRAZOLE 40MG TAB (PROTONIX) PO SCH (08:10)
[2022-12-16] MEDS: FUROSEMIDE 40MG/4ML VIAL IV SCH ×2 (08:10→16:05)
[2022-12-16] MEDS: predniSONE 20 MG TAB PO SCH (08:10)
[2022-12-16] MEDS: VANICREAM MOISTURIZING SKIN CREAM 113GM TUBE TOP SCH ×2 (08:11→19:55)
[2022-12-16] MEDS: NICOTINE 21MG/24HR 1 EA TRANSDERMAL TD SCH (08:11)
[2022-12-16] MEDS: ACETAMINOPHEN TAB 650MG DOSE (2X325MG) PO PRN ×2 (08:12→14:40)
[2022-12-16] MEDS: INSULIN LISPRO (NovoLOG) PER UNIT SC SCH ×4 (08:12→19:49)
[2022-12-16] MEDS: DOCUSATE SODIUM 100MG CAPSULE PO SCH ×2 (08:54→19:35)
[2022-12-16] MEDS ORDERED: POTASSIUM CHLORIDE 10% LIQ 20MEQ/15ML UDC PO SCH (09:00)
[2022-12-16] MEDS: KCL 10MEQ/100ML SWI (KRUN) 10 MEQ in IV 1 EA IV SCH ×2 (09:23→11:23)
[2022-12-16] MEDS: LEVEMIR (INSULIN DETEMIR) 1 UNITS/0.01ML SC SCH (19:56)
[2022-12-17] MEDS: ACETAMINOPHEN TAB 650MG DOSE (2X325MG) PO PRN (00:04)
[2022-12-17] MEDS: LEVALBUTEROL 1.25MG/3ML NEB SOLN NEB SCH ×4 (01:07→20:03)
[2022-12-17 04:00] VITALS: BP 108/55; TEMP 97.7; O2SAT 94
[2022-12-17 05:36] LABS: BASO % 0.1 % (0.0-1.0); EOS # 0.1 10^3/uL (0.0-0.5); EOS % 0.3 % (0.0-3.0); HEMATOCRIT 26.2 % (42.0-52.0); HEMOGLOBIN 9.1 g/dl (13.5-17.5); LYMPH # 2.9 10^3/uL (1.5-5.0); LYMPH % 19.4 % (24.0-44.0); MEAN CORPUSCULAR HEMOGLOBIN 33.3 pg (27.0-33.0); MEAN CORPUSCULAR HGB CONC 34.7 g/dl (32.0-36.5); MONO % 13.6 % (2.0-8.0); NEUTROPHILS # 9.7 10^3/uL (1.5-8.5); NEUTROPHILS % 66.1 % (36.0-66.0); PLATELET COUNT, AUTOMATED 169 10^3/uL (150-450); RED BLOOD COUNT 2.73 10^6/uL (4.30-6.10); WHITE BLOOD COUNT 14.7 10^3/uL (4.0-10.0)
[2022-12-17 06:07] LABS: ALBUMIN 2.9 G/DL (3.2-5.2); ALKALINE PHOSPHATASE 152 U/L (46-116); ALT/SGPT 20 U/L (7.0-40); AST/SGOT 14 U/L (<34); BILIRUBIN,TOTAL 0.4 MG/DL (0.3-1.2); BLOOD UREA NITROGEN 19 MG/DL (9-23); CALCIUM LEVEL 8.7 MG/DL (8.3-10.6); CARBON DIOXIDE LEVEL 36 MMOL/L (20-31); CHLORIDE LEVEL 96 MMOL/L (98-107); CREATININE FOR GFR 0.84 MG/DL (0.70-1.30); GLOMERULAR FILTRATION RATE > 60.0 (>42); GLUCOSE, FASTING 69 MG/DL (74-106); MAGNESIUM LEVEL 1.9 MG/DL (1.8-2.4); SODIUM LEVEL 140 MMOL/L (136-145)
[2022-12-17] MEDS: INSULIN LISPRO (NovoLOG) PER UNIT SC SCH ×4 (07:30→19:54)
[2022-12-17] MEDS: DOCUSATE SODIUM 100MG CAPSULE PO SCH ×2 (07:42→19:55)
[2022-12-17 08:00] VITALS: BP 110/62; TEMP 98.4; O2SAT 94
[2022-12-17] MEDS ORDERED: KCL 10MEQ/100ML SWI (KRUN) 10 MEQ in IV 1 EA IV ONE ×2 (08:00→09:00)
[2022-12-17] MEDS: predniSONE 20 MG TAB PO SCH (08:51)
[2022-12-17] MEDS: HEPARIN SOD (PORCINE) 5000UNITS/ML 1ML VIAL/SYRINGE SC SCH ×2 (08:52→19:55)
[2022-12-17] MEDS: COLCHICINE 0.6 MG TABLET PO SCH (08:52)
[2022-12-17] MEDS: PANTOPRAZOLE 40MG TAB (PROTONIX) PO SCH (08:52)
[2022-12-17] MEDS: FUROSEMIDE 40MG/4ML VIAL IV SCH (08:52)
[2022-12-17] MEDS: VANICREAM MOISTURIZING SKIN CREAM 113GM TUBE TOP SCH ×2 (08:53→19:56)
[2022-12-17] MEDS: NICOTINE 21MG/24HR 1 EA TRANSDERMAL TD SCH (08:53)
[2022-12-17] MEDS: POTASSIUM CHLORIDE 10MEQ SR TABLET PO SCH ×2 (08:53→19:55)
[2022-12-17] MEDS ORDERED: POTASSIUM CHLORIDE 10% LIQ 20MEQ/15ML UDC PO SCH (09:00)
[2022-12-17 12:00] VITALS: BP 128/64; TEMP 97.9; O2SAT 96
[2022-12-17 16:00] VITALS: BP 108/61; TEMP 99.1; O2SAT 93
[2022-12-17] MEDS: HumuLIN N INSULIN (NovoLIN N) PER UNIT SC SCH (17:09)
[2022-12-17 19:54] VITALS: BP 109/58; TEMP 98.9; O2SAT 94
[2022-12-17] MEDS ORDERED: LEVEMIR (INSULIN DETEMIR) 1 UNITS/0.01ML SC SCH (21:00)
[2022-12-18 00:17] VITALS: BP 111/64; TEMP 97.7; O2SAT 91
[2022-12-18] MEDS: LEVALBUTEROL 1.25MG/3ML NEB SOLN NEB SCH ×5 (01:00→21:33)
[2022-12-18] MEDS: ACETAMINOPHEN TAB 650MG DOSE (2X325MG) PO PRN (03:56)
[2022-12-18 04:00] VITALS: BP 110/65; TEMP 98; O2SAT 93
[2022-12-18 04:37] LABS: BASO % 0.1 % (0.0-1.0); EOS % 0.1 % (0.0-3.0); HEMATOCRIT 28.2 % (42.0-52.0); HEMOGLOBIN 9.5 g/dl (13.5-17.5); LYMPH # 2.7 10^3/uL (1.5-5.0); MEAN CORPUSCULAR HEMOGLOBIN 32.5 pg (27.0-33.0); MEAN CORPUSCULAR HGB CONC 33.7 g/dl (32.0-36.5); MEAN CORPUSCULAR VOLUME 96.6 fl (80.0-96.0); MONO % 12.3 % (2.0-8.0); NEUTROPHILS # 9.8 10^3/uL (1.5-8.5); PLATELET COUNT, AUTOMATED 192 10^3/uL (150-450); RED BLOOD COUNT 2.92 10^6/uL (4.30-6.10); WHITE BLOOD COUNT 14.4 10^3/uL (4.0-10.0)
[2022-12-18 04:43] LABS: MONO # 1.8 10^3/uL (0.0-0.8)
[2022-12-18 05:11] LABS: ALBUMIN 2.9 G/DL (3.2-5.2); ALKALINE PHOSPHATASE 158 U/L (46-116); ALT/SGPT 21 U/L (7.0-40); AST/SGOT 17 U/L (<34); BILIRUBIN,TOTAL 0.5 MG/DL (0.3-1.2); BLOOD UREA NITROGEN 18 MG/DL (9-23); CALCIUM LEVEL 8.5 MG/DL (8.3-10.6); CARBON DIOXIDE LEVEL 34 MMOL/L (20-31); CHLORIDE LEVEL 96 MMOL/L (98-107); GLOMERULAR FILTRATION RATE > 60.0 (>42); GLUCOSE, FASTING 146 MG/DL (74-106); MAGNESIUM LEVEL 1.7 MG/DL (1.8-2.4); POTASSIUM SERUM 3.6 MMOL/L (3.5-5.1); SODIUM LEVEL 138 MMOL/L (136-145); TOTAL PROTEIN 5.2 G/DL (5.7-8.2)
[2022-12-18] MEDS: INSULIN LISPRO (NovoLOG) PER UNIT SC SCH ×3 (07:30→16:48)
[2022-12-18] MEDS: HumuLIN N INSULIN (NovoLIN N) PER UNIT SC SCH ×2 (07:30→18:24)
[2022-12-18 08:00] VITALS: BP 112/62; TEMP 98.5; O2SAT 92
[2022-12-18] MEDS: predniSONE 20 MG TAB PO SCH (08:32)
[2022-12-18] MEDS: POTASSIUM CHLORIDE 10MEQ SR TABLET PO SCH (08:32)
[2022-12-18] MEDS: PANTOPRAZOLE 40MG TAB (PROTONIX) PO SCH (08:32)
[2022-12-18] MEDS: FUROSEMIDE 40MG/4ML VIAL IV SCH (08:33)
[2022-12-18] MEDS: HEPARIN SOD (PORCINE) 5000UNITS/ML 1ML VIAL/SYRINGE SC SCH ×2 (08:33→20:05)
[2022-12-18] MEDS: VANICREAM MOISTURIZING SKIN CREAM 113GM TUBE TOP SCH ×2 (08:33→23:42)
[2022-12-18] MEDS: NICOTINE 21MG/24HR 1 EA TRANSDERMAL TD SCH (08:34)
[2022-12-18] MEDS: COLCHICINE 0.6 MG TABLET PO SCH (08:34)
[2022-12-18] MEDS: DOCUSATE SODIUM 100MG CAPSULE PO SCH ×2 (09:00→20:04)
[2022-12-18 12:00] VITALS: BP 105/57; TEMP 98.1; O2SAT 92
[2022-12-18 15:00] VITALS: BP 117/63; TEMP 99.5; O2SAT 95
[2022-12-18] MEDS: MAGNESIUM OXIDE 400MG TAB (MAG-OX) PO SCH (20:05)
[2022-12-18 22:00] VITALS: BP 115/62; TEMP 98.8; O2SAT 96
[2022-12-19] MEDS: LEVALBUTEROL 1.25MG/3ML NEB SOLN NEB SCH ×4 (01:12→21:04)
[2022-12-19] MEDS ORDERED: TAMSULOSIN 0.4 MG CAP PO ONE (04:00)
[2022-12-19 05:45] VITALS: BP 119/64; TEMP 98.6; O2SAT 100
[2022-12-19 07:57] LABS: HEMATOCRIT 28.7 % (42.0-52.0); HEMOGLOBIN 9.7 g/dl (13.5-17.5); MEAN CORPUSCULAR HEMOGLOBIN 33.1 pg (27.0-33.0); MEAN CORPUSCULAR HGB CONC 33.8 g/dl (32.0-36.5); PLATELET COUNT, AUTOMATED 222 10^3/uL (150-450); RED BLOOD COUNT 2.93 10^6/uL (4.30-6.10); WHITE BLOOD COUNT 16.3 10^3/uL (4.0-10.0)
[2022-12-19 08:22] LABS: ALBUMIN 2.9 G/DL (3.2-5.2); ALKALINE PHOSPHATASE 177 U/L (46-116); ALT/SGPT 32 U/L (7.0-40); AST/SGOT 31 U/L (<34); BILIRUBIN,TOTAL 0.6 MG/DL (0.3-1.2); BLOOD UREA NITROGEN 20 MG/DL (9-23); CALCIUM LEVEL 8.6 MG/DL (8.3-10.6); CARBON DIOXIDE LEVEL 33 MMOL/L (20-31); CHLORIDE LEVEL 99 MMOL/L (98-107); CREATININE FOR GFR 0.66 MG/DL (0.70-1.30); GLOMERULAR FILTRATION RATE > 60.0 (>42); GLUCOSE, FASTING 121 MG/DL (74-106); POTASSIUM SERUM 3.4 MMOL/L (3.5-5.1); SODIUM LEVEL 139 MMOL/L (136-145); TOTAL PROTEIN 5.3 G/DL (5.7-8.2)
[2022-12-19] MEDS: MAGNESIUM OXIDE 400MG TAB (MAG-OX) PO SCH ×2 (08:44→19:57)
[2022-12-19] MEDS: POTASSIUM CHLORIDE 10MEQ SR TABLET PO SCH (08:44)
[2022-12-19] MEDS: PANTOPRAZOLE 40MG TAB (PROTONIX) PO SCH (08:44)
[2022-12-19] MEDS: predniSONE 20 MG TAB PO SCH (08:44)
[2022-12-19] MEDS: COLCHICINE 0.6 MG TABLET PO SCH (08:44)
[2022-12-19] MEDS: INSULIN LISPRO (NovoLOG) PER UNIT SC SCH ×3 (08:45→17:40)
[2022-12-19] MEDS: NICOTINE 21MG/24HR 1 EA TRANSDERMAL TD SCH (08:46)
[2022-12-19] MEDS: DOCUSATE SODIUM 100MG CAPSULE PO SCH ×2 (08:46→19:52)
[2022-12-19] MEDS: HumuLIN N INSULIN (NovoLIN N) PER UNIT SC SCH (08:46)
[2022-12-19] MEDS: VANICREAM MOISTURIZING SKIN CREAM 113GM TUBE TOP SCH ×2 (08:47→19:57)
[2022-12-19] MEDS: HEPARIN SOD (PORCINE) 5000UNITS/ML 1ML VIAL/SYRINGE SC SCH ×2 (08:47→19:57)
[2022-12-19] MEDS: FUROSEMIDE 40MG/4ML VIAL IV SCH (08:47)
[2022-12-19] MEDS ORDERED: predniSONE 10MG TAB PO SCH (09:00)
[2022-12-19 14:00] VITALS: BP 124/68; TEMP 98.6; O2SAT 96
[2022-12-19 16:19] LABS: PROCALCITONIN 0.09 ng/ml
[2022-12-19] MEDS ORDERED: POTASSIUM CHLORIDE 10MEQ SR TABLET PO ONE (17:00)
[2022-12-19] MEDS ORDERED: FUROSEMIDE 40MG/4ML VIAL IV ONE (17:00)
[2022-12-19 22:00] VITALS: BP 124/66; TEMP 97.5; O2SAT 91
[2022-12-20] MEDS: LEVALBUTEROL 1.25MG/3ML NEB SOLN NEB SCH ×3 (02:00→12:51)
[2022-12-20 05:12] LABS: ANTI DS-DNA AB Negative (Negative)
[2022-12-20 06:00] VITALS: BP 118/69; TEMP 99; O2SAT 95
[2022-12-20 06:26] LABS: HEMATOCRIT 26.4 % (42.0-52.0); MEAN CORPUSCULAR HEMOGLOBIN 33.1 pg (27.0-33.0); MEAN CORPUSCULAR HGB CONC 34.1 g/dl (32.0-36.5); MEAN CORPUSCULAR VOLUME 97.1 fl (80.0-96.0); PLATELET COUNT, AUTOMATED 223 10^3/uL (150-450); RED BLOOD COUNT 2.72 10^6/uL (4.30-6.10); WHITE BLOOD COUNT 14.7 10^3/uL (4.0-10.0)
[2022-12-20 07:45] LABS: ALBUMIN 2.7 G/DL (3.2-5.2); ALKALINE PHOSPHATASE 181 U/L (46-116); ALT/SGPT 37 U/L (7.0-40); AST/SGOT 32 U/L (<34); BILIRUBIN,TOTAL 0.5 MG/DL (0.3-1.2); BLOOD UREA NITROGEN 20 MG/DL (9-23); CALCIUM LEVEL 8.2 MG/DL (8.3-10.6); CARBON DIOXIDE LEVEL 33 MMOL/L (20-31); CHLORIDE LEVEL 96 MMOL/L (98-107); GLOMERULAR FILTRATION RATE > 60.0 (>42); GLUCOSE, FASTING 305 MG/DL (74-106); MAGNESIUM LEVEL 1.5 MG/DL (1.8-2.4); POTASSIUM SERUM 3.6 MMOL/L (3.5-5.1); SODIUM LEVEL 136 MMOL/L (136-145)
[2022-12-20] MEDS ORDERED: predniSONE 10MG TAB PO SCH (09:00)
[2022-12-20] MEDS ORDERED: FERROUS SULFATE 325MG TAB PO SCH (09:00)
[2022-12-20] MEDS: DOCUSATE SODIUM 100MG CAPSULE PO SCH (09:44)
[2022-12-20] MEDS: NICOTINE 21MG/24HR 1 EA TRANSDERMAL TD SCH (09:44)
[2022-12-20] MEDS: HEPARIN SOD (PORCINE) 5000UNITS/ML 1ML VIAL/SYRINGE SC SCH (09:44)
[2022-12-20] MEDS: FUROSEMIDE 40MG/4ML VIAL IV SCH (09:44)
[2022-12-20] MEDS: POTASSIUM CHLORIDE 10MEQ SR TABLET PO SCH (09:45)
[2022-12-20] MEDS: COLCHICINE 0.6 MG TABLET PO SCH (09:45)
[2022-12-20] MEDS: PANTOPRAZOLE 40MG TAB (PROTONIX) PO SCH (09:45)
[2022-12-20] MEDS: MAGNESIUM OXIDE 400MG TAB (MAG-OX) PO SCH (09:45)
[2022-12-20] MEDS: VANICREAM MOISTURIZING SKIN CREAM 113GM TUBE TOP SCH (09:46)
[2022-12-20] MEDS: INSULIN LISPRO (NovoLOG) PER UNIT SC SCH ×3 (09:47→17:05)
[2022-12-20] MEDS ORDERED: PRED10TA2 PO (12:35)
[2022-12-20] MEDS ORDERED: PANT40TA29 PO (12:35)
[2022-12-20] MEDS ORDERED: MAGN400T2 PO ×2 (12:35→12:47)
[2022-12-20] MEDS ORDERED: LEVA1.2519 NEB (12:35)
[2022-12-20] MEDS ORDERED: COLA100C5 PO (12:35)
[2022-12-20] MEDS ORDERED: VANI1CRE5 TOP (12:35)
[2022-12-20] MEDS ORDERED: LASI40TA9 PO (12:35)
[2022-12-20] MEDS ORDERED: HEPA500023 SC (12:35)
[2022-12-20] MEDS ORDERED: COLC0.6T47 PO (12:35)
[2022-12-20] MEDS ORDERED: ACET1TAB55 PO (12:35)
[2022-12-20] MEDS ORDERED: FERR1TAB8 PO (12:35)
[2022-12-20] MEDS ORDERED: NICO21PAT TD (12:35)
[2022-12-20] MEDS ORDERED: POTA-136 PO (12:35)
[2022-12-20] MEDS ORDERED: INSUHUMDS SC (12:35)
[2022-12-20] MEDS ORDERED: MOM30SS2 PO (12:35)
[2022-12-20] MEDS ORDERED: POTASSIUM CHLORIDE 10MEQ SR TABLET PO ONE (17:15)
[2022-12-20] MEDS ORDERED: FUROSEMIDE 40MG/4ML VIAL IV ONE (17:15)
== END 2022-12-20 18:56 | DRG 270 ==
LOC: M ED 12:40 → M ED INP 17:55 → M ICU 17:55 → M MSPAV 12-18 14:50
PROVIDERS: ADMIT Student in an Organized Health Care Education/Training Program; ATTEND Internal Medicine
PROC: B246ZZZ Ultrasonography of Right and Left Heart (ICD-10-PCS; 2022-12-08)
PROC: 0W9D00Z Drainage of Pericardial Cavity with Drainage Device, Open Approach (ICD-10-PCS; principal; 2022-12-11)
PROC: 0PB00ZZ Excision of Sternum, Open Approach (ICD-10-PCS; 2022-12-11)
PROC: 30233J1 Transfusion of Nonautologous Serum Albumin into Peripheral Vein, Percutaneous Approach (ICD-10-PCS; 2022-12-12)
DX: I31.39 Other pericardial effusion (noninflammatory) (principal); J96.00 Acute respiratory failure, unspecified whether with hypoxia or hypercapnia; J18.9 Pneumonia, unspecified organism; J44.1 Chronic obstructive pulmonary disease with (acute) exacerbation; J44.0 Chronic obstructive pulmonary disease with (acute) lower respiratory infection; R18.8 Other ascites; R64 Cachexia; J98.11 Atelectasis; J90 Pleural effusion, not elsewhere classified; E87.3 Alkalosis; I50.30 Unspecified diastolic (congestive) heart failure; E44.1 Mild protein-calorie malnutrition; Z68.1 Body mass index [BMI] 19.9 or less, adult; Z53.39 Other specified procedure converted to open procedure; Z66 Do not resuscitate; F17.210 Nicotine dependence, cigarettes, uncomplicated; I73.9 Peripheral vascular disease, unspecified; Z95.828 Presence of other vascular implants and grafts; E83.42 Hypomagnesemia; Z79.82 Long term (current) use of aspirin; I31.1 Chronic constrictive pericarditis; I31.4 Cardiac tamponade; D64.9 Anemia, unspecified; E87.5 Hyperkalemia; E11.51 Type 2 diabetes mellitus with diabetic peripheral angiopathy without gangrene; E87.6 Hypokalemia; K74.60 Unspecified cirrhosis of liver

== ENCOUNTER 2022-12-20 11:55 | Inpatient (IN) | payer MEDICARE ==
[~2022-12-20] VITALS: Ht 170.2 cm; Wt 47.4 kg
[~2022-12-20 11:55] MED LIST: ASPI81TA26 PO; NOXI1TAB PO
[2022-12-20] MEDS ORDERED: VANI1CRE5 TOP (12:35)
[2022-12-20] MEDS ORDERED: LASI40TA9 PO (12:35)
[2022-12-20] MEDS ORDERED: ACET1TAB55 PO (12:35)
[2022-12-20] MEDS ORDERED: MOM30SS2 PO (12:35)
[2022-12-20] MEDS ORDERED: FERR1TAB8 PO (12:35)
[2022-12-20] MEDS ORDERED: INSUHUMDS SC (12:35)
[2022-12-20] MEDS ORDERED: MAGN400T2 PO ×2 (12:35→12:47)
[2022-12-20] MEDS ORDERED: PRED10TA2 PO (12:35)
[2022-12-20] MEDS ORDERED: PANT40TA29 PO (12:35)
[2022-12-20] MEDS ORDERED: COLC0.6T47 PO (12:35)
[2022-12-20] MEDS ORDERED: HEPA500023 SC (12:35)
[2022-12-20] MEDS ORDERED: POTA-136 PO (12:35)
[2022-12-20] MEDS ORDERED: LEVA1.2519 NEB (12:35)
[2022-12-20] MEDS ORDERED: NICO21PAT TD (12:35)
[2022-12-20] MEDS ORDERED: COLA100C5 PO (12:35)
[2022-12-20 20:00] VITALS: BP 104/63; TEMP 97.9; O2SAT 94
[2022-12-20] MEDS: SENNA 8.6 MG TAB (SENOKOT) PO SCH (21:00)
[2022-12-20] MEDS ORDERED: GLUCAGON INJ 1MG VIAL SC PRN (21:10)
[2022-12-20] MEDS ORDERED: DEXTROSE 50% 50ML SYRINGE IV PRN (21:10)
[2022-12-20] MEDS ORDERED: GLUCOSE 4GM CHEW TABLET PO PRN (21:10)
[2022-12-20] MEDS ORDERED: ACETAMINOPHEN TAB 650MG DOSE (2X325MG) PO PRN (21:10)
[2022-12-20] MEDS ORDERED: BISACODYL 10MG SUPP PR PRN (21:10)
[2022-12-20] MEDS: SUCRALFATE 1 GM TAB PO SCH (21:57)
[2022-12-20] MEDS: PANTOPRAZOLE 40MG TAB (PROTONIX) PO SCH (21:57)
[2022-12-20 22:00] VITALS: BP 104/63; TEMP 97.9; O2SAT 95
[2022-12-21 02:29] VITALS: BP 120/70; TEMP 98.6; O2SAT 91
[2022-12-21] MEDS ORDERED: ROCURONIUM BROMIDE 50MG/5ML VIAL As Ordered ONE (03:51)
[2022-12-21] MEDS ORDERED: propofoL 200 MG/20 ML VIAL As Ordered ONE (03:51)
[2022-12-21] MEDS ORDERED: LIDOCAINE 2% 100MG/5ML SDV (FOR ANES.) As Ordered ONE (03:51)
[2022-12-21] MEDS ORDERED: fentaNYL 100 MCG/2 ML INJECTION As Ordered ONE (03:51)
[2022-12-21] MEDS ORDERED: SUGAMMADEX SODIUM 500 MG/5 ML VIAL (BRIDION) As Ordered ONE (03:54)
[2022-12-21] MEDS ORDERED: METOCLOPRAMIDE INJ 10MG/2ML VIAL As Ordered ONE (03:57)
[2022-12-21] MEDS ORDERED: ONDANSETRON 4MG 2ML VIAL As Ordered ONE (03:57)
[2022-12-21] MEDS ORDERED: KETOROLAC 60MG 2ML VIAL As Ordered ONE (03:57)
[2022-12-21] MEDS ORDERED: MIDAZOLAM INJ 2MG/2ML VIAL As Ordered ONE (04:17)
[2022-12-21] MEDS ORDERED: LIDOCAINE 1% SDV 30ML VIAL As Ordered ONE (04:34)
[2022-12-21] MEDS ORDERED: ceFAZolin 1GM VIAL As Ordered ONE (04:41)
[2022-12-21] MEDS ORDERED: ACETAMINOPHEN 500 MG TAB PO PRN (05:00)
[2022-12-21] MEDS ORDERED: MORPHINE 2 MG/ML 1ML VIAL IV PRN (05:00)
[2022-12-21] MEDS ORDERED: KETOROLAC 30 MG/ML 1ML VIAL IV PRN (05:00)
[2022-12-21 06:00] VITALS: BP 137/66; TEMP 97.4; O2SAT 100
[2022-12-21 06:38] LABS: BASO % 0.1 % (0.0-1.0); HEMATOCRIT 30.4 % (42.0-52.0); HEMOGLOBIN 10.4 g/dl (13.5-17.5); LYMPH # 2.4 10^3/uL (1.5-5.0); LYMPH % 18.6 % (24.0-44.0); MEAN CORPUSCULAR HGB CONC 34.2 g/dl (32.0-36.5); MEAN CORPUSCULAR VOLUME 99.3 fl (80.0-96.0); MONO # 1.3 10^3/uL (0.0-0.8); NEUTROPHILS # 9.3 10^3/uL (1.5-8.5); NEUTROPHILS % 70.8 % (36.0-66.0); RED BLOOD COUNT 3.06 10^6/uL (4.30-6.10); WHITE BLOOD COUNT 13.1 10^3/uL (4.0-10.0)
[2022-12-21 06:40] LABS: PLATELET COUNT, AUTOMATED 93 10^3/uL (150-450)
[2022-12-21 07:03] LABS: IRON (FE) 42 UG/DL (65-175); PERCENT SATURATION 22.6 % (19.7-50.0); TOTAL IRON BINDING CAPACITY 186 UG/DL (250-425)
[2022-12-21 07:06] LABS: FERRITIN 228.5 NG/ML (10.5-307.3)
[2022-12-21] MEDS: LEVALBUTEROL HFA 45MCG/ACT 15GM INHALER INH SCH ×4 (07:09→19:33)
[2022-12-21 07:12] LABS: ALBUMIN 3.1 G/DL (3.2-5.2); ALKALINE PHOSPHATASE 214 U/L (46-116); ALT/SGPT 49 U/L (7.0-40); AST/SGOT 33 U/L (<34); BILIRUBIN,TOTAL 0.6 MG/DL (0.3-1.2); BLOOD UREA NITROGEN 18 MG/DL (9-23); CALCIUM LEVEL 8.6 MG/DL (8.3-10.6); CARBON DIOXIDE LEVEL 31 MMOL/L (20-31); CHLORIDE LEVEL 98 MMOL/L (98-107); CREATININE FOR GFR 0.75 MG/DL (0.70-1.30); GLOMERULAR FILTRATION RATE > 60.0 (>42); GLUCOSE, FASTING 258 MG/DL (74-106); POTASSIUM SERUM 4.2 MMOL/L (3.5-5.1); SODIUM LEVEL 137 MMOL/L (136-145); TOTAL PROTEIN 5.6 G/DL (5.7-8.2)
[2022-12-21] MEDS ORDERED: HOME MED LIST COMPLETE! XX SCH (07:25)
[2022-12-21] MEDS: COLCHICINE 0.6 MG TABLET PO SCH (08:56)
[2022-12-21] MEDS: SUCRALFATE 1 GM TAB PO SCH ×2 (08:56→20:50)
[2022-12-21] MEDS: SPIRONOLACTONE 12.5MG PER 1/2 TABLET PO SCH (08:56)
[2022-12-21] MEDS: predniSONE 10MG TAB PO SCH (08:56)
[2022-12-21] MEDS: TORSEMIDE 20 MG TAB PO SCH (08:56)
[2022-12-21] MEDS: PANTOPRAZOLE 40MG TAB (PROTONIX) PO SCH ×2 (08:56→20:50)
[2022-12-21] MEDS: DOCUSATE SODIUM 100MG CAPSULE PO SCH ×2 (08:57→20:38)
[2022-12-21] MEDS: POTASSIUM CHLORIDE 10MEQ SR TABLET PO SCH ×2 (08:57→20:50)
[2022-12-21] MEDS: MAGNESIUM OXIDE 400MG TAB (MAG-OX) PO SCH ×2 (08:57→20:50)
[2022-12-21] MEDS: NICOTINE 21MG/24HR 1 EA TRANSDERMAL TD SCH (08:58)
[2022-12-21] MEDS: REMEDY PHYTOPLEX Z-GUARD PASTE 113GM TUBE (FROM STOREROOM PRODUCT) TOP SCH ×3 (08:58→20:38)
[2022-12-21] MEDS ORDERED: FERROUS SULFATE 325MG TAB PO SCH (09:00)
[2022-12-21] MEDS ORDERED: HEPARIN SOD (PORCINE) 5000UNITS/ML 1ML VIAL/SYRINGE SC SCH (09:00)
[2022-12-21] MEDS ORDERED: LEVEMIR (INSULIN DETEMIR) 1 UNITS/0.01ML SC SCH (09:00)
[2022-12-21] MEDS ORDERED: ASPIRIN 81MG ENTERIC TABLET PO SCH (09:00)
[2022-12-21] MEDS ORDERED: FUROSEMIDE 40 MG TAB PO SCH (09:00)
[2022-12-21] MEDS: INSULIN LISPRO (NovoLOG) PER UNIT SC SCH ×4 (09:01→20:38)
[2022-12-21] MEDS: LEVEMIR (INSULIN DETEMIR) 1 UNITS/0.01ML SC SCH (09:02)
[2022-12-21] MEDS: PIPERACILLIN/TAZOBACTAM SOD 3.375 GM in D5W MINI-BAG PLUS 50 ML IV SCH ×2 (12:48→18:04)
[2022-12-21] MEDS: LACTOBACILLUS ACIDOPHILUS CAP (BACID) PO SCH ×2 (12:51→18:03)
[2022-12-21] MEDS: DIMETHICONE 2% OINTMENT(VANICREAM) 70GM TUBE TOP SCH ×2 (12:51→21:00)
[2022-12-21 14:00] VITALS: BP 116/68; TEMP 97.6; O2SAT 93
[2022-12-21] MEDS: guaiFENesin 200 MG TAB PO SCH ×2 (16:38→20:50)
[2022-12-21 20:00] VITALS: BP 129/95; TEMP 99.1; O2SAT 90
[2022-12-21] MEDS: SENNA 8.6 MG TAB (SENOKOT) PO SCH (20:54)
[2022-12-22] MEDS: PIPERACILLIN/TAZOBACTAM SOD 3.375 GM in D5W MINI-BAG PLUS 50 ML IV SCH ×5 (00:25→23:25)
[2022-12-22 06:00] VITALS: BP 128/59; TEMP 97.9; O2SAT 96
[2022-12-22] MEDS: LEVALBUTEROL HFA 45MCG/ACT 15GM INHALER INH SCH ×4 (06:58→19:12)
[2022-12-22] MEDS: INSULIN LISPRO (NovoLOG) PER UNIT SC SCH ×4 (07:42→20:02)
[2022-12-22] MEDS: REMEDY PHYTOPLEX Z-GUARD PASTE 113GM TUBE (FROM STOREROOM PRODUCT) TOP SCH ×3 (09:00→20:02)
[2022-12-22] MEDS: DIMETHICONE 2% OINTMENT(VANICREAM) 70GM TUBE TOP SCH ×2 (09:00→21:54)
[2022-12-22] MEDS: SUCRALFATE 1 GM TAB PO SCH ×2 (09:17→20:23)
[2022-12-22] MEDS: SPIRONOLACTONE 12.5MG PER 1/2 TABLET PO SCH (09:18)
[2022-12-22] MEDS: NICOTINE 21MG/24HR 1 EA TRANSDERMAL TD SCH (09:18)
[2022-12-22] MEDS: DOCUSATE SODIUM 100MG CAPSULE PO SCH ×2 (09:18→20:02)
[2022-12-22] MEDS: COLCHICINE 0.6 MG TABLET PO SCH (09:18)
[2022-12-22] MEDS: LACTOBACILLUS ACIDOPHILUS CAP (BACID) PO SCH ×2 (09:18→17:59)
[2022-12-22] MEDS: predniSONE 10MG TAB PO SCH (09:19)
[2022-12-22] MEDS: TORSEMIDE 20 MG TAB PO SCH (09:19)
[2022-12-22] MEDS: POTASSIUM CHLORIDE 10MEQ SR TABLET PO SCH ×2 (09:20→20:23)
[2022-12-22] MEDS: PANTOPRAZOLE 40MG TAB (PROTONIX) PO SCH ×2 (09:20→20:23)
[2022-12-22] MEDS: MAGNESIUM OXIDE 400MG TAB (MAG-OX) PO SCH ×2 (09:20→20:23)
[2022-12-22] MEDS: guaiFENesin 200 MG TAB PO SCH ×3 (09:20→20:23)
[2022-12-22] MEDS: LEVEMIR (INSULIN DETEMIR) 1 UNITS/0.01ML SC SCH (09:21)
[2022-12-22 14:00] VITALS: BP 119/71; TEMP 97.7; O2SAT 95
[2022-12-22 20:00] VITALS: BP 121/66; TEMP 98.2; O2SAT 96
[2022-12-22] MEDS: SENNA 8.6 MG TAB (SENOKOT) PO SCH (20:02)
[2022-12-23] MEDS: PIPERACILLIN/TAZOBACTAM SOD 3.375 GM in D5W MINI-BAG PLUS 50 ML IV SCH ×4 (05:43→23:59)
[2022-12-23 06:00] VITALS: BP 116/64; TEMP 98.2; O2SAT 94
[2022-12-23] MEDS: SUCRALFATE 1 GM TAB PO SCH ×2 (08:20→20:08)
[2022-12-23] MEDS: INSULIN LISPRO (NovoLOG) PER UNIT SC SCH ×4 (08:20→20:10)
[2022-12-23] MEDS: TORSEMIDE 20 MG TAB PO SCH (08:21)
[2022-12-23] MEDS: SPIRONOLACTONE 12.5MG PER 1/2 TABLET PO SCH (08:21)
[2022-12-23] MEDS: LACTOBACILLUS ACIDOPHILUS CAP (BACID) PO SCH ×2 (08:21→18:17)
[2022-12-23] MEDS: COLCHICINE 0.6 MG TABLET PO SCH (08:21)
[2022-12-23] MEDS: predniSONE 10MG TAB PO SCH (08:21)
[2022-12-23] MEDS: guaiFENesin 200 MG TAB PO SCH ×3 (08:22→20:08)
[2022-12-23] MEDS: PANTOPRAZOLE 40MG TAB (PROTONIX) PO SCH ×2 (08:22→20:08)
[2022-12-23] MEDS: POTASSIUM CHLORIDE 10MEQ SR TABLET PO SCH ×2 (08:22→20:08)
[2022-12-23] MEDS: MAGNESIUM OXIDE 400MG TAB (MAG-OX) PO SCH ×2 (08:22→20:08)
[2022-12-23] MEDS: LEVEMIR (INSULIN DETEMIR) 1 UNITS/0.01ML SC SCH (08:23)
[2022-12-23] MEDS: NICOTINE 21MG/24HR 1 EA TRANSDERMAL TD SCH (08:23)
[2022-12-23] MEDS: DIMETHICONE 2% OINTMENT(VANICREAM) 70GM TUBE TOP SCH ×2 (08:24→20:10)
[2022-12-23] MEDS: DOCUSATE SODIUM 100MG CAPSULE PO SCH ×2 (08:24→20:09)
[2022-12-23] MEDS: REMEDY PHYTOPLEX Z-GUARD PASTE 113GM TUBE (FROM STOREROOM PRODUCT) TOP SCH ×3 (09:00→20:10)
[2022-12-23] MEDS ORDERED: FUROSEMIDE 40 MG TAB PO SCH (09:00)
[2022-12-23] MEDS: LEVALBUTEROL HFA 45MCG/ACT 15GM INHALER INH SCH ×4 (09:45→21:24)
[2022-12-23 11:30] LABS: BASO % 0.1 % (0.0-1.0); HEMATOCRIT 31.8 % (42.0-52.0); HEMOGLOBIN 10.5 g/dl (13.5-17.5); LYMPH # 0.8 10^3/uL (1.5-5.0); LYMPH % 5.1 % (24.0-44.0); MEAN CORPUSCULAR HEMOGLOBIN 33.4 pg (27.0-33.0); MEAN CORPUSCULAR VOLUME 101.3 fl (80.0-96.0); MONO % 6.5 % (2.0-8.0); NEUTROPHILS % 87.8 % (36.0-66.0); PLATELET COUNT, AUTOMATED 245 10^3/uL (150-450); RED BLOOD COUNT 3.14 10^6/uL (4.30-6.10); WHITE BLOOD COUNT 14.8 10^3/uL (4.0-10.0)
[2022-12-23 11:56] LABS: BLOOD UREA NITROGEN 15 MG/DL (9-23); CALCIUM LEVEL 8.3 MG/DL (8.3-10.6); CARBON DIOXIDE LEVEL 31 MMOL/L (20-31); CHLORIDE LEVEL 99 MMOL/L (98-107); CREATININE FOR GFR 0.84 MG/DL (0.70-1.30); GLOMERULAR FILTRATION RATE > 60.0 (>42); GLUCOSE, FASTING 316 MG/DL (74-106); POTASSIUM SERUM 4.1 MMOL/L (3.5-5.1); SODIUM LEVEL 136 MMOL/L (136-145)
[2022-12-23 14:00] VITALS: BP 137/64; TEMP 97.3; O2SAT 97
[2022-12-23 20:00] VITALS: BP 140/79; TEMP 97.6; O2SAT 95
[2022-12-23] MEDS: GABAPENTIN 100 MG CAP PO SCH (20:08)
[2022-12-23] MEDS: SENNA 8.6 MG TAB (SENOKOT) PO SCH (20:10)
[2022-12-24] MEDS: PIPERACILLIN/TAZOBACTAM SOD 3.375 GM in D5W MINI-BAG PLUS 50 ML IV SCH ×4 (05:52→23:52)
[2022-12-24 06:00] VITALS: BP 121/62; TEMP 98; O2SAT 94
[2022-12-24] MEDS: SUCRALFATE 1 GM TAB PO SCH ×2 (07:26→20:40)
[2022-12-24] MEDS: LACTOBACILLUS ACIDOPHILUS CAP (BACID) PO SCH ×2 (07:26→17:06)
[2022-12-24] MEDS: INSULIN LISPRO (NovoLOG) PER UNIT SC SCH ×4 (07:27→21:32)
[2022-12-24] MEDS: LEVALBUTEROL HFA 45MCG/ACT 15GM INHALER INH SCH ×4 (07:29→20:06)
[2022-12-24] MEDS: COLCHICINE 0.6 MG TABLET PO SCH (08:41)
[2022-12-24] MEDS: SPIRONOLACTONE 12.5MG PER 1/2 TABLET PO SCH (08:41)
[2022-12-24] MEDS: TORSEMIDE 20 MG TAB PO SCH ×2 (08:42→17:06)
[2022-12-24] MEDS: predniSONE 10MG TAB PO SCH (08:42)
[2022-12-24] MEDS: POTASSIUM CHLORIDE 10MEQ SR TABLET PO SCH ×2 (08:42→20:40)
[2022-12-24] MEDS: MAGNESIUM OXIDE 400MG TAB (MAG-OX) PO SCH ×2 (08:42→20:40)
[2022-12-24] MEDS: guaiFENesin 200 MG TAB PO SCH ×3 (08:43→20:40)
[2022-12-24] MEDS: LEVEMIR (INSULIN DETEMIR) 1 UNITS/0.01ML SC SCH (08:43)
[2022-12-24] MEDS: PANTOPRAZOLE 40MG TAB (PROTONIX) PO SCH ×2 (08:43→20:41)
[2022-12-24] MEDS: GABAPENTIN 100 MG CAP PO SCH ×2 (08:43→20:40)
[2022-12-24] MEDS: DIMETHICONE 2% OINTMENT(VANICREAM) 70GM TUBE TOP SCH ×2 (08:44→21:03)
[2022-12-24] MEDS: REMEDY PHYTOPLEX Z-GUARD PASTE 113GM TUBE (FROM STOREROOM PRODUCT) TOP SCH ×3 (08:44→21:03)
[2022-12-24] MEDS: DOCUSATE SODIUM 100MG CAPSULE PO SCH ×2 (08:45→20:41)
[2022-12-24] MEDS: NICOTINE 21MG/24HR 1 EA TRANSDERMAL TD SCH (09:00)
[2022-12-24 14:00] VITALS: BP 114/66; TEMP 98; O2SAT 98
[2022-12-24 20:00] VITALS: BP 120/60; TEMP 98.2; O2SAT 95
[2022-12-24] MEDS: SENNA 8.6 MG TAB (SENOKOT) PO SCH (20:41)
[2022-12-25 06:00] VITALS: BP 105/60; TEMP 98.1; O2SAT 94
[2022-12-25] MEDS: PIPERACILLIN/TAZOBACTAM SOD 3.375 GM in D5W MINI-BAG PLUS 50 ML IV SCH ×3 (06:02→17:36)
[2022-12-25 06:34] LABS: ALBUMIN 2.9 G/DL (3.2-5.2); BLOOD UREA NITROGEN 11 MG/DL (9-23); CALCIUM LEVEL 8.6 MG/DL (8.3-10.6); CARBON DIOXIDE LEVEL 29 MMOL/L (20-31); CHLORIDE LEVEL 97 MMOL/L (98-107); CREATININE FOR GFR 0.99 MG/DL (0.70-1.30); GLOMERULAR FILTRATION RATE > 60.0 (>42); GLUCOSE, FASTING 287 MG/DL (74-106); PHOSPHORUS LEVEL 3.9 MG/DL (2.4-5.1); POTASSIUM SERUM 4.1 MMOL/L (3.5-5.1); SODIUM LEVEL 136 MMOL/L (136-145)
[2022-12-25] MEDS: LEVALBUTEROL HFA 45MCG/ACT 15GM INHALER INH SCH ×4 (07:34→20:16)
[2022-12-25 07:58] LABS: BASO % 0.1 % (0.0-1.0); EOS % 0.1 % (0.0-3.0); HEMATOCRIT 30.7 % (42.0-52.0); HEMOGLOBIN 10.4 g/dl (13.5-17.5); LYMPH # 2.1 10^3/uL (1.5-5.0); LYMPH % 13.1 % (24.0-44.0); MEAN CORPUSCULAR HEMOGLOBIN 33.5 pg (27.0-33.0); MEAN CORPUSCULAR HGB CONC 33.9 g/dl (32.0-36.5); MONO # 1.5 10^3/uL (0.0-0.8); MONO % 9.3 % (2.0-8.0); NEUTROPHILS # 12.3 10^3/uL (1.5-8.5); NEUTROPHILS % 76.8 % (36.0-66.0); PLATELET COUNT, AUTOMATED 233 10^3/uL (150-450); WHITE BLOOD COUNT 16.1 10^3/uL (4.0-10.0)
[2022-12-25] MEDS: DOCUSATE SODIUM 100MG CAPSULE PO SCH ×2 (09:00→21:07)
[2022-12-25] MEDS: REMEDY PHYTOPLEX Z-GUARD PASTE 113GM TUBE (FROM STOREROOM PRODUCT) TOP SCH ×3 (09:00→21:00)
[2022-12-25] MEDS: LEVEMIR (INSULIN DETEMIR) 1 UNITS/0.01ML SC SCH ×2 (09:09→21:56)
[2022-12-25] MEDS: guaiFENesin 200 MG TAB PO SCH ×3 (09:10→21:07)
[2022-12-25] MEDS: INSULIN LISPRO (NovoLOG) PER UNIT SC SCH ×4 (09:10→21:00)
[2022-12-25] MEDS: SUCRALFATE 1 GM TAB PO SCH ×2 (09:10→21:07)
[2022-12-25] MEDS: TORSEMIDE 20 MG TAB PO SCH ×2 (09:12→16:56)
[2022-12-25] MEDS: GABAPENTIN 100 MG CAP PO SCH ×2 (09:12→21:07)
[2022-12-25] MEDS: LACTOBACILLUS ACIDOPHILUS CAP (BACID) PO SCH ×2 (09:12→16:56)
[2022-12-25] MEDS: POTASSIUM CHLORIDE 10MEQ SR TABLET PO SCH ×2 (09:12→21:06)
[2022-12-25] MEDS: SPIRONOLACTONE 12.5MG PER 1/2 TABLET PO SCH (09:12)
[2022-12-25] MEDS: COLCHICINE 0.6 MG TABLET PO SCH (09:12)
[2022-12-25] MEDS: PANTOPRAZOLE 40MG TAB (PROTONIX) PO SCH ×2 (09:13→21:07)
[2022-12-25] MEDS: predniSONE 10MG TAB PO SCH (09:13)
[2022-12-25] MEDS: MAGNESIUM OXIDE 400MG TAB (MAG-OX) PO SCH ×2 (09:13→21:07)
[2022-12-25] MEDS: NICOTINE 21MG/24HR 1 EA TRANSDERMAL TD SCH (09:14)
[2022-12-25] MEDS: DIMETHICONE 2% OINTMENT(VANICREAM) 70GM TUBE TOP SCH ×2 (09:19→21:52)
[2022-12-25 20:00] VITALS: TEMP 98.1; O2SAT 88
[2022-12-25] MEDS: SENNA 8.6 MG TAB (SENOKOT) PO SCH (21:07)
[2022-12-26 06:00] VITALS: BP 115/68; TEMP 95.5; O2SAT 95
[2022-12-26 06:22] LABS: BLOOD UREA NITROGEN 11 MG/DL (9-23); CALCIUM LEVEL 8.3 MG/DL (8.3-10.6); CARBON DIOXIDE LEVEL 29 MMOL/L (20-31); CHLORIDE LEVEL 99 MMOL/L (98-107); CREATININE FOR GFR 0.85 MG/DL (0.70-1.30); GLOMERULAR FILTRATION RATE > 60.0 (>42); GLUCOSE, FASTING 66 MG/DL (74-106); PHOSPHORUS LEVEL 3.7 MG/DL (2.4-5.1); POTASSIUM SERUM 4.1 MMOL/L (3.5-5.1); SODIUM LEVEL 138 MMOL/L (136-145)
[2022-12-26] MEDS: INSULIN LISPRO (NovoLOG) PER UNIT SC SCH ×4 (07:30→20:38)
[2022-12-26] MEDS: LEVEMIR (INSULIN DETEMIR) 1 UNITS/0.01ML SC SCH (07:30)
[2022-12-26] MEDS: LEVALBUTEROL HFA 45MCG/ACT 15GM INHALER INH SCH ×4 (07:33→19:52)
[2022-12-26 07:54] VITALS: BP 138/78
[2022-12-26] MEDS ORDERED: LEVEMIR (INSULIN DETEMIR) 1 UNITS/0.01ML SC SCH (08:00)
[2022-12-26] MEDS: predniSONE 10MG TAB PO SCH (08:19)
[2022-12-26] MEDS: SUCRALFATE 1 GM TAB PO SCH ×2 (08:19→20:37)
[2022-12-26] MEDS: GABAPENTIN 100 MG CAP PO SCH ×2 (08:19→20:37)
[2022-12-26] MEDS: guaiFENesin 200 MG TAB PO SCH ×3 (08:19→20:37)
[2022-12-26] MEDS: TORSEMIDE 20 MG TAB PO SCH ×2 (08:20→17:57)
[2022-12-26] MEDS: LACTOBACILLUS ACIDOPHILUS CAP (BACID) PO SCH ×2 (08:20→17:57)
[2022-12-26] MEDS: PANTOPRAZOLE 40MG TAB (PROTONIX) PO SCH ×2 (08:20→20:37)
[2022-12-26] MEDS: COLCHICINE 0.6 MG TABLET PO SCH (08:20)
[2022-12-26] MEDS: SPIRONOLACTONE 12.5MG PER 1/2 TABLET PO SCH (08:20)
[2022-12-26] MEDS: POTASSIUM CHLORIDE 10MEQ SR TABLET PO SCH ×2 (08:20→20:38)
[2022-12-26] MEDS: MAGNESIUM OXIDE 400MG TAB (MAG-OX) PO SCH ×2 (08:21→20:37)
[2022-12-26] MEDS: DOCUSATE SODIUM 100MG CAPSULE PO SCH ×2 (08:21→19:46)
[2022-12-26] MEDS: REMEDY PHYTOPLEX Z-GUARD PASTE 113GM TUBE (FROM STOREROOM PRODUCT) TOP SCH ×3 (08:22→20:31)
[2022-12-26] MEDS: DIMETHICONE 2% OINTMENT(VANICREAM) 70GM TUBE TOP SCH ×2 (08:22→20:38)
[2022-12-26] MEDS: NICOTINE 21MG/24HR 1 EA TRANSDERMAL TD SCH (08:24)
[2022-12-26 13:25] VITALS: BP 128/76; TEMP 97; O2SAT 95
[2022-12-26 14:00] VITALS: BP 128/76; TEMP 97; O2SAT 95
[2022-12-26] MEDS: SENNA 8.6 MG TAB (SENOKOT) PO SCH (19:46)
[2022-12-26 20:00] VITALS: BP 102/58; TEMP 98.4; O2SAT 95
[2022-12-27] MEDS: RAMELTEON 8 MG TAB (ROZEREM) PO PRN (00:13)
[2022-12-27 06:00] VITALS: BP 100/58; TEMP 98.4; O2SAT 97
[2022-12-27] MEDS: DOCUSATE SODIUM 100MG CAPSULE PO SCH ×2 (07:24→19:23)
[2022-12-27] MEDS: LEVALBUTEROL HFA 45MCG/ACT 15GM INHALER INH SCH ×4 (07:38→19:24)
[2022-12-27 08:12] LABS: ALBUMIN 3.1 G/DL (3.2-5.2); BLOOD UREA NITROGEN 15 MG/DL (9-23); CALCIUM LEVEL 8.9 MG/DL (8.3-10.6); CARBON DIOXIDE LEVEL 38 MMOL/L (20-31); CHLORIDE LEVEL 97 MMOL/L (98-107); CREATININE FOR GFR 1.06 MG/DL (0.70-1.30); GLOMERULAR FILTRATION RATE > 60.0 (>42); GLUCOSE, FASTING 101 MG/DL (74-106); PHOSPHORUS LEVEL 4.2 MG/DL (2.4-5.1); POTASSIUM SERUM 4.1 MMOL/L (3.5-5.1); SODIUM LEVEL 140 MMOL/L (136-145)
[2022-12-27] MEDS: LACTOBACILLUS ACIDOPHILUS CAP (BACID) PO SCH ×2 (08:56→18:23)
[2022-12-27] MEDS: PANTOPRAZOLE 40MG TAB (PROTONIX) PO SCH ×2 (08:56→20:14)
[2022-12-27] MEDS: guaiFENesin 200 MG TAB PO SCH ×3 (08:56→20:13)
[2022-12-27] MEDS: SPIRONOLACTONE 12.5MG PER 1/2 TABLET PO SCH (08:56)
[2022-12-27] MEDS: SUCRALFATE 1 GM TAB PO SCH ×2 (08:56→20:14)
[2022-12-27] MEDS: predniSONE 10MG TAB PO SCH (08:56)
[2022-12-27] MEDS: GABAPENTIN 100 MG CAP PO SCH ×3 (08:56→20:14)
[2022-12-27] MEDS: COLCHICINE 0.6 MG TABLET PO SCH (08:56)
[2022-12-27] MEDS: POTASSIUM CHLORIDE 10MEQ SR TABLET PO SCH ×2 (08:57→20:14)
[2022-12-27] MEDS: MAGNESIUM OXIDE 400MG TAB (MAG-OX) PO SCH ×2 (08:57→20:14)
[2022-12-27] MEDS: INSULIN LISPRO (NovoLOG) PER UNIT SC SCH ×4 (08:57→20:15)
[2022-12-27] MEDS: LEVEMIR (INSULIN DETEMIR) 1 UNITS/0.01ML SC SCH (08:58)
[2022-12-27] MEDS: REMEDY PHYTOPLEX Z-GUARD PASTE 113GM TUBE (FROM STOREROOM PRODUCT) TOP SCH ×3 (08:59→20:00)
[2022-12-27] MEDS: DIMETHICONE 2% OINTMENT(VANICREAM) 70GM TUBE TOP SCH ×2 (08:59→20:19)
[2022-12-27] MEDS: NICOTINE 21MG/24HR 1 EA TRANSDERMAL TD SCH (08:59)
[2022-12-27] MEDS ORDERED: LEVEMIR (INSULIN DETEMIR) 1 UNITS/0.01ML SC SCH (09:00)
[2022-12-27] MEDS: TORSEMIDE 10 MG TABLET PO SCH ×2 (09:01→18:19)
[2022-12-27] MEDS ORDERED: oxyCODONE 5MG TAB PO PRN (09:45)
[2022-12-27] MEDS ORDERED: ACETAMINOPHEN 500 MG TAB PO ONE (09:45)
[2022-12-27 14:00] VITALS: BP 120/65; TEMP 97.6; O2SAT 95
[2022-12-27] MEDS: SENNA 8.6 MG TAB (SENOKOT) PO SCH (19:23)
[2022-12-27 20:00] VITALS: BP 114/59; TEMP 98.2; O2SAT 95
[2022-12-28] MEDS: RAMELTEON 8 MG TAB (ROZEREM) PO PRN ×2 (00:06→20:34)
[2022-12-28 06:00] VITALS: BP 120/64; TEMP 98.4; O2SAT 94
[2022-12-28 06:35] LABS: BASO % 0.1 % (0.0-1.0); EOS % 0.1 % (0.0-3.0); HEMATOCRIT 30.8 % (42.0-52.0); HEMOGLOBIN 10.3 g/dl (13.5-17.5); LYMPH # 2.8 10^3/uL (1.5-5.0); LYMPH % 19.8 % (24.0-44.0); MEAN CORPUSCULAR HEMOGLOBIN 33.1 pg (27.0-33.0); MEAN CORPUSCULAR HGB CONC 33.4 g/dl (32.0-36.5); MONO # 1.2 10^3/uL (0.0-0.8); MONO % 8.5 % (2.0-8.0); PLATELET COUNT, AUTOMATED 202 10^3/uL (150-450); RED BLOOD COUNT 3.11 10^6/uL (4.30-6.10); WHITE BLOOD COUNT 14.1 10^3/uL (4.0-10.0)
[2022-12-28 07:05] LABS: BLOOD UREA NITROGEN 13 MG/DL (9-23); CALCIUM LEVEL 8.6 MG/DL (8.3-10.6); CARBON DIOXIDE LEVEL 32 MMOL/L (20-31); CHLORIDE LEVEL 96 MMOL/L (98-107); CREATININE FOR GFR 0.85 MG/DL (0.70-1.30); GLOMERULAR FILTRATION RATE > 60.0 (>42); GLUCOSE, FASTING 212 MG/DL (74-106); MAGNESIUM LEVEL 1.7 MG/DL (1.8-2.4); PHOSPHORUS LEVEL 3.3 MG/DL (2.4-5.1); POTASSIUM SERUM 3.9 MMOL/L (3.5-5.1); SODIUM LEVEL 135 MMOL/L (136-145)
[2022-12-28] MEDS: LEVALBUTEROL HFA 45MCG/ACT 15GM INHALER INH SCH ×4 (07:42→19:48)
[2022-12-28] MEDS: DOCUSATE SODIUM 100MG CAPSULE PO SCH ×2 (08:05→19:27)
[2022-12-28] MEDS: LACTOBACILLUS ACIDOPHILUS CAP (BACID) PO SCH ×2 (08:12→17:31)
[2022-12-28] MEDS: POTASSIUM CHLORIDE 10MEQ SR TABLET PO SCH ×2 (08:12→20:35)
[2022-12-28] MEDS: predniSONE 20 MG TAB PO SCH (08:12)
[2022-12-28] MEDS: GABAPENTIN 100 MG CAP PO SCH ×3 (08:12→20:35)
[2022-12-28] MEDS: COLCHICINE 0.6 MG TABLET PO SCH (08:12)
[2022-12-28] MEDS: SUCRALFATE 1 GM TAB PO SCH ×2 (08:13→20:34)
[2022-12-28] MEDS: guaiFENesin 200 MG TAB PO SCH ×3 (08:13→20:34)
[2022-12-28] MEDS: SPIRONOLACTONE 12.5MG PER 1/2 TABLET PO SCH (08:13)
[2022-12-28] MEDS: MAGNESIUM OXIDE 400MG TAB (MAG-OX) PO SCH ×2 (08:13→20:35)
[2022-12-28] MEDS: PANTOPRAZOLE 40MG TAB (PROTONIX) PO SCH ×2 (08:13→20:34)
[2022-12-28] MEDS: TORSEMIDE 10 MG TABLET PO SCH ×2 (08:13→17:30)
[2022-12-28] MEDS: NICOTINE 21MG/24HR 1 EA TRANSDERMAL TD SCH (08:13)
[2022-12-28] MEDS: INSULIN LISPRO (NovoLOG) PER UNIT SC SCH ×4 (08:14→20:33)
[2022-12-28] MEDS: REMEDY PHYTOPLEX Z-GUARD PASTE 113GM TUBE (FROM STOREROOM PRODUCT) TOP SCH ×3 (08:14→19:28)
[2022-12-28] MEDS: LEVEMIR (INSULIN DETEMIR) 1 UNITS/0.01ML SC SCH (08:14)
[2022-12-28] MEDS: DIMETHICONE 2% OINTMENT(VANICREAM) 70GM TUBE TOP SCH ×2 (08:15→20:35)
[2022-12-28] MEDS: metFORMIN (GLUCOPHAGE) 500MG TAB PO SCH (10:09)
[2022-12-28 14:00] VITALS: BP 112/61; TEMP 97.4; O2SAT 98
[2022-12-28] MEDS: SENNA 8.6 MG TAB (SENOKOT) PO SCH (19:27)
[2022-12-28 20:00] VITALS: BP 120/67; TEMP 98.8; O2SAT 96
[2022-12-29 06:00] VITALS: BP 108/56; TEMP 97.4; O2SAT 100
[2022-12-29 06:07] LABS: BASO % 0.2 % (0.0-1.0); EOS % 0.2 % (0.0-3.0); HEMATOCRIT 31.6 % (42.0-52.0); HEMOGLOBIN 10.3 g/dl (13.5-17.5); LYMPH # 2.8 10^3/uL (1.5-5.0); LYMPH % 23.2 % (24.0-44.0); MEAN CORPUSCULAR HEMOGLOBIN 32.9 pg (27.0-33.0); MEAN CORPUSCULAR HGB CONC 32.6 g/dl (32.0-36.5); MONO # 1.1 10^3/uL (0.0-0.8); MONO % 9.5 % (2.0-8.0); NEUTROPHILS % 66.4 % (36.0-66.0); PLATELET COUNT, AUTOMATED 191 10^3/uL (150-450); RED BLOOD COUNT 3.13 10^6/uL (4.30-6.10)
[2022-12-29 06:17] LABS: BLOOD UREA NITROGEN 14 MG/DL (9-23); CALCIUM LEVEL 8.6 MG/DL (8.3-10.6); CARBON DIOXIDE LEVEL 33 MMOL/L (20-31); CHLORIDE LEVEL 99 MMOL/L (98-107); CREATININE FOR GFR 0.81 MG/DL (0.70-1.30); GLOMERULAR FILTRATION RATE > 60.0 (>42); GLUCOSE, FASTING 198 MG/DL (74-106); POTASSIUM SERUM 4.3 MMOL/L (3.5-5.1); SODIUM LEVEL 139 MMOL/L (136-145)
[2022-12-29] MEDS: LEVALBUTEROL HFA 45MCG/ACT 15GM INHALER INH SCH ×4 (07:35→20:30)
[2022-12-29] MEDS: SUCRALFATE 1 GM TAB PO SCH ×2 (07:51→20:38)
[2022-12-29] MEDS: INSULIN LISPRO (NovoLOG) PER UNIT SC SCH ×4 (07:52→19:26)
[2022-12-29] MEDS: LEVEMIR (INSULIN DETEMIR) 1 UNITS/0.01ML SC SCH (07:52)
[2022-12-29] MEDS: COLCHICINE 0.6 MG TABLET PO SCH (07:52)
[2022-12-29] MEDS: POTASSIUM CHLORIDE 10MEQ SR TABLET PO SCH ×2 (07:53→20:38)
[2022-12-29] MEDS: predniSONE 20 MG TAB PO SCH (07:53)
[2022-12-29] MEDS: metFORMIN (GLUCOPHAGE) 500MG TAB PO SCH ×2 (07:54→17:08)
[2022-12-29] MEDS: PANTOPRAZOLE 40MG TAB (PROTONIX) PO SCH ×2 (07:54→20:38)
[2022-12-29] MEDS: LACTOBACILLUS ACIDOPHILUS CAP (BACID) PO SCH ×2 (07:54→17:08)
[2022-12-29] MEDS: TORSEMIDE 10 MG TABLET PO SCH ×2 (07:54→17:08)
[2022-12-29] MEDS: SPIRONOLACTONE 12.5MG PER 1/2 TABLET PO SCH (07:55)
[2022-12-29] MEDS: DOCUSATE SODIUM 100MG CAPSULE PO SCH ×2 (07:55→19:27)
[2022-12-29] MEDS: guaiFENesin 200 MG TAB PO SCH ×3 (07:55→20:39)
[2022-12-29] MEDS: MAGNESIUM OXIDE 400MG TAB (MAG-OX) PO SCH ×2 (07:55→20:38)
[2022-12-29] MEDS: GABAPENTIN 100 MG CAP PO SCH ×3 (07:56→20:38)
[2022-12-29] MEDS: NICOTINE 21MG/24HR 1 EA TRANSDERMAL TD SCH (07:56)
[2022-12-29] MEDS: REMEDY PHYTOPLEX Z-GUARD PASTE 113GM TUBE (FROM STOREROOM PRODUCT) TOP SCH ×3 (07:57→19:26)
[2022-12-29] MEDS: DIMETHICONE 2% OINTMENT(VANICREAM) 70GM TUBE TOP SCH ×2 (07:57→20:40)
[2022-12-29 14:00] VITALS: BP 131/56; TEMP 98.3; O2SAT 97
[2022-12-29] MEDS: SENNA 8.6 MG TAB (SENOKOT) PO SCH (19:27)
[2022-12-29 20:00] VITALS: BP 107/58; TEMP 98.7; O2SAT 93
[2022-12-29] MEDS: RAMELTEON 8 MG TAB (ROZEREM) PO PRN (20:39)
[2022-12-30 06:00] VITALS: BP 118/62; TEMP 97.8; O2SAT 94
[2022-12-30] MEDS ORDERED: LEVEMIR (INSULIN DETEMIR) 1 UNITS/0.01ML SC SCH (08:00)
[2022-12-30] MEDS: LEVALBUTEROL HFA 45MCG/ACT 15GM INHALER INH SCH ×4 (08:01→21:02)
[2022-12-30] MEDS: guaiFENesin 200 MG TAB PO SCH ×3 (08:57→21:33)
[2022-12-30] MEDS: LACTOBACILLUS ACIDOPHILUS CAP (BACID) PO SCH ×2 (08:57→17:12)
[2022-12-30] MEDS: metFORMIN (GLUCOPHAGE) 500MG TAB PO SCH ×2 (08:57→17:12)
[2022-12-30] MEDS: DOCUSATE SODIUM 100MG CAPSULE PO SCH ×2 (08:57→21:34)
[2022-12-30] MEDS: POTASSIUM CHLORIDE 10MEQ SR TABLET PO SCH (08:58)
[2022-12-30] MEDS: GABAPENTIN 100 MG CAP PO SCH ×3 (08:58→21:34)
[2022-12-30] MEDS: TORSEMIDE 10 MG TABLET PO SCH ×2 (08:58→17:12)
[2022-12-30] MEDS: MAGNESIUM OXIDE 400MG TAB (MAG-OX) PO SCH ×2 (08:58→21:34)
[2022-12-30] MEDS: PANTOPRAZOLE 40MG TAB (PROTONIX) PO SCH ×2 (08:58→21:34)
[2022-12-30] MEDS: predniSONE 20 MG TAB PO SCH (08:58)
[2022-12-30] MEDS: SPIRONOLACTONE 12.5MG PER 1/2 TABLET PO SCH (08:59)
[2022-12-30] MEDS: COLCHICINE 0.6 MG TABLET PO SCH (08:59)
[2022-12-30] MEDS: SUCRALFATE 1 GM TAB PO SCH ×2 (08:59→21:34)
[2022-12-30] MEDS: NICOTINE 21MG/24HR 1 EA TRANSDERMAL TD SCH (08:59)
[2022-12-30] MEDS: DIMETHICONE 2% OINTMENT(VANICREAM) 70GM TUBE TOP SCH ×2 (09:00→21:33)
[2022-12-30] MEDS: REMEDY PHYTOPLEX Z-GUARD PASTE 113GM TUBE (FROM STOREROOM PRODUCT) TOP SCH ×3 (09:00→21:00)
[2022-12-30] MEDS: INSULIN LISPRO (NovoLOG) PER UNIT SC SCH ×4 (09:01→21:00)
[2022-12-30 14:00] VITALS: BP 108/55; TEMP 98; O2SAT 92
[2022-12-30] MEDS ORDERED: SENNA 8.6 MG TAB (SENOKOT) PO PRN (17:55)
[2022-12-30 20:00] VITALS: BP 111/58; TEMP 97.9; O2SAT 96
[2022-12-30] MEDS: ENOXAPARIN 30MG/0.3ML SYRINGE (J1650 PER 10MG) SC SCH (21:33)
[2022-12-30] MEDS: RAMELTEON 8 MG TAB (ROZEREM) PO PRN (21:34)
[2022-12-31 06:00] VITALS: BP 108/64; TEMP 98.3; O2SAT 96
[2022-12-31 07:21] LABS: BLOOD UREA NITROGEN 16 MG/DL (9-23); CALCIUM LEVEL 8.6 MG/DL (8.3-10.6); CARBON DIOXIDE LEVEL 34 MMOL/L (20-31); CHLORIDE LEVEL 97 MMOL/L (98-107); CREATININE FOR GFR 0.83 MG/DL (0.70-1.30); GLOMERULAR FILTRATION RATE > 60.0 (>42); GLUCOSE, FASTING 162 MG/DL (74-106); POTASSIUM SERUM 3.9 MMOL/L (3.5-5.1); SODIUM LEVEL 138 MMOL/L (136-145)
[2022-12-31] MEDS ORDERED: LEVEMIR (INSULIN DETEMIR) 1 UNITS/0.01ML SC SCH (08:00)
[2022-12-31] MEDS: LEVALBUTEROL HFA 45MCG/ACT 15GM INHALER INH SCH ×4 (08:43→19:35)
[2022-12-31] MEDS: DOCUSATE SODIUM 100MG CAPSULE PO SCH ×2 (09:00→21:16)
[2022-12-31] MEDS: REMEDY PHYTOPLEX Z-GUARD PASTE 113GM TUBE (FROM STOREROOM PRODUCT) TOP SCH ×3 (09:00→21:00)
[2022-12-31] MEDS: INSULIN LISPRO (NovoLOG) PER UNIT SC SCH ×4 (10:04→21:00)
[2022-12-31] MEDS: PANTOPRAZOLE 40MG TAB (PROTONIX) PO SCH ×2 (10:06→21:16)
[2022-12-31] MEDS: MAGNESIUM OXIDE 400MG TAB (MAG-OX) PO SCH ×2 (10:06→21:16)
[2022-12-31] MEDS: DIMETHICONE 2% OINTMENT(VANICREAM) 70GM TUBE TOP SCH ×2 (10:06→21:00)
[2022-12-31] MEDS: COLCHICINE 0.6 MG TABLET PO SCH (10:06)
[2022-12-31] MEDS: guaiFENesin 200 MG TAB PO SCH ×3 (10:06→21:16)
[2022-12-31] MEDS: POTASSIUM CHLORIDE 10MEQ SR TABLET PO SCH (10:07)
[2022-12-31] MEDS: GABAPENTIN 100 MG CAP PO SCH ×3 (10:07→21:16)
[2022-12-31] MEDS: predniSONE 20 MG TAB PO SCH (10:08)
[2022-12-31] MEDS: SPIRONOLACTONE 12.5MG PER 1/2 TABLET PO SCH (10:08)
[2022-12-31] MEDS: TORSEMIDE 10 MG TABLET PO SCH ×2 (10:08→17:35)
[2022-12-31] MEDS: NICOTINE 21MG/24HR 1 EA TRANSDERMAL TD SCH (10:09)
[2022-12-31] MEDS: LACTOBACILLUS ACIDOPHILUS CAP (BACID) PO SCH ×2 (10:11→17:35)
[2022-12-31] MEDS: SUCRALFATE 1 GM TAB PO SCH ×2 (10:11→21:16)
[2022-12-31] MEDS: metFORMIN (GLUCOPHAGE) 500MG TAB PO SCH ×2 (10:11→17:35)
[2022-12-31] MEDS ORDERED: NICO21PAT TD (11:00)
[2022-12-31] MEDS ORDERED: SUCR1TA PO (11:00)
[2022-12-31] MEDS ORDERED: TORS10TA3 PO (11:00)
[2022-12-31] MEDS ORDERED: GABA-1171 PO (11:00)
[2022-12-31] MEDS ORDERED: COLC0.6T47 PO (11:00)
[2022-12-31] MEDS ORDERED: LEVAINH INH (11:00)
[2022-12-31] MEDS ORDERED: POTA-136 PO (11:00)
[2022-12-31] MEDS ORDERED: PANT40TA29 PO (11:00)
[2022-12-31] MEDS ORDERED: MAGN400T2 PO (11:00)
[2022-12-31] MEDS ORDERED: PRED5TA PO (11:00)
[2022-12-31] MEDS ORDERED: ASPI81TA26 PO (11:00)
[2022-12-31] MEDS ORDERED: ALDA25TA2 PO (11:00)
[2022-12-31] MEDS ORDERED: METF500T13 PO (11:00)
[2022-12-31 11:48] LABS: BASO % 0.2 % (0.0-1.0); EOS % 0.2 % (0.0-3.0); HEMATOCRIT 30.5 % (42.0-52.0); HEMOGLOBIN 10.2 g/dl (13.5-17.5); LYMPH # 2.6 10^3/uL (1.5-5.0); LYMPH % 22.7 % (24.0-44.0); MEAN CORPUSCULAR HEMOGLOBIN 33.1 pg (27.0-33.0); MEAN CORPUSCULAR HGB CONC 33.4 g/dl (32.0-36.5); MONO # 1.1 10^3/uL (0.0-0.8); MONO % 9.7 % (2.0-8.0); NEUTROPHILS # 7.5 10^3/uL (1.5-8.5); NEUTROPHILS % 66.6 % (36.0-66.0); PLATELET COUNT, AUTOMATED 166 10^3/uL (150-450); RED BLOOD COUNT 3.08 10^6/uL (4.30-6.10); WHITE BLOOD COUNT 11.3 10^3/uL (4.0-10.0)
[2022-12-31 11:53] LABS: ERYTHROCYTE SEDIMENTATION RATE 3 mm/hr (0-20)
[2022-12-31 12:03] LABS: URIC ACID 5.7 MG/DL (3.7-9.2)
[2022-12-31 12:04] LABS: C REACTIVE PROTEIN QUANTITATIV < 0.40 MG/DL (<1.0)
[2022-12-31 12:05] LABS: ALKALINE PHOSPHATASE 192 U/L (46-116); ALT/SGPT 40 U/L (7.0-40); AST/SGOT 20 U/L (<34); BILIRUBIN,TOTAL 0.5 MG/DL (0.3-1.2); BLOOD UREA NITROGEN 17 MG/DL (9-23); CALCIUM LEVEL 8.9 MG/DL (8.3-10.6); CARBON DIOXIDE LEVEL 31 MMOL/L (20-31); CHLORIDE LEVEL 98 MMOL/L (98-107); CREATININE FOR GFR 0.77 MG/DL (0.70-1.30); GLOMERULAR FILTRATION RATE > 60.0 (>42); GLUCOSE, FASTING 118 MG/DL (74-106); POTASSIUM SERUM 3.7 MMOL/L (3.5-5.1); SODIUM LEVEL 138 MMOL/L (136-145); TOTAL PROTEIN 5.5 G/DL (5.7-8.2)
[2022-12-31 12:06] LABS: RHEUMATOID FACTOR QUANT < 3.5 IU/ML (<14)
[2022-12-31 14:00] VITALS: BP 102/56; TEMP 98.3; O2SAT 94
[2022-12-31 20:00] VITALS: BP 102/59; TEMP 98.2; O2SAT 95
[2022-12-31] MEDS: ENOXAPARIN 30MG/0.3ML SYRINGE (J1650 PER 10MG) SC SCH (21:15)
[2023-01-01 06:00] VITALS: BP 111/63; TEMP 98.1; O2SAT 95
[2023-01-01] MEDS: LEVALBUTEROL HFA 45MCG/ACT 15GM INHALER INH SCH (07:57)
[2023-01-01] MEDS: GABAPENTIN 100 MG CAP PO SCH (08:19)
[2023-01-01] MEDS: SPIRONOLACTONE 12.5MG PER 1/2 TABLET PO SCH (08:19)
[2023-01-01] MEDS: SUCRALFATE 1 GM TAB PO SCH (08:19)
[2023-01-01] MEDS: metFORMIN (GLUCOPHAGE) 500MG TAB PO SCH (08:19)
[2023-01-01] MEDS: guaiFENesin 200 MG TAB PO SCH (08:19)
[2023-01-01] MEDS: LACTOBACILLUS ACIDOPHILUS CAP (BACID) PO SCH (08:19)
[2023-01-01] MEDS: COLCHICINE 0.6 MG TABLET PO SCH (08:19)
[2023-01-01] MEDS: PANTOPRAZOLE 40MG TAB (PROTONIX) PO SCH (08:19)
[2023-01-01] MEDS: MAGNESIUM OXIDE 400MG TAB (MAG-OX) PO SCH (08:20)
[2023-01-01] MEDS: POTASSIUM CHLORIDE 10MEQ SR TABLET PO SCH (08:20)
[2023-01-01] MEDS: DOCUSATE SODIUM 100MG CAPSULE PO SCH (08:20)
[2023-01-01] MEDS: TORSEMIDE 10 MG TABLET PO SCH (08:20)
[2023-01-01] MEDS: predniSONE 20 MG TAB PO SCH (08:20)
[2023-01-01] MEDS: INSULIN LISPRO (NovoLOG) PER UNIT SC SCH (08:21)
[2023-01-01] MEDS: DIMETHICONE 2% OINTMENT(VANICREAM) 70GM TUBE TOP SCH (08:21)
[2023-01-01] MEDS: REMEDY PHYTOPLEX Z-GUARD PASTE 113GM TUBE (FROM STOREROOM PRODUCT) TOP SCH (08:21)
[2023-01-01] MEDS: NICOTINE 21MG/24HR 1 EA TRANSDERMAL TD SCH (08:22)
== END 2023-01-01 10:40 | disposition home health service (06) | DRG 988 ==
LOC: M PM&R 19:00
PROVIDERS: ADMIT Physical Medicine & Rehabilitation; ATTEND Physical Medicine & Rehabilitation
PROC: 0DBU0ZZ Excision of Omentum, Open Approach (ICD-10-PCS; principal; 2022-12-21 04:00)
PROC: 0HDRXZZ Extraction of Toe Nail, External Approach (ICD-10-PCS; 2022-12-26)
DX: I31.39 Other pericardial effusion (noninflammatory) (principal); I50.32 Chronic diastolic (congestive) heart failure; R64 Cachexia; T81.31XA Disruption of external operation (surgical) wound, not elsewhere classified, initial encounter; I31.1 Chronic constrictive pericarditis; E11.42 Type 2 diabetes mellitus with diabetic polyneuropathy; E11.51 Type 2 diabetes mellitus with diabetic peripheral angiopathy without gangrene; J44.9 Chronic obstructive pulmonary disease, unspecified; R53.1 Weakness; E87.6 Hypokalemia; I70.0 Atherosclerosis of aorta; K57.30 Diverticulosis of large intestine without perforation or abscess without bleeding; I50.810 Right heart failure, unspecified; D50.9 Iron deficiency anemia, unspecified; Z66 Do not resuscitate; B35.1 Tinea unguium; K74.60 Unspecified cirrhosis of liver; E11.65 Type 2 diabetes mellitus with hyperglycemia; E11.621 Type 2 diabetes mellitus with foot ulcer; R26.81 Unsteadiness on feet; E83.42 Hypomagnesemia; M35.9 Systemic involvement of connective tissue, unspecified; I25.10 Atherosclerotic heart disease of native coronary artery without angina pectoris; D72.829 Elevated white blood cell count, unspecified; E11.649 Type 2 diabetes mellitus with hypoglycemia without coma; L97.519 Non-pressure chronic ulcer of other part of right foot with unspecified severity; D69.6 Thrombocytopenia, unspecified; I27.89 Other specified pulmonary heart diseases; Z74.09 Other reduced mobility; Z74.1 Need for assistance with personal care; Z79.82 Long term (current) use of aspirin; Z79.4 Long term (current) use of insulin; L60.0 Ingrowing nail; Z79.899 Other long term (current) drug therapy; Z79.52 Long term (current) use of systemic steroids; Z87.891 Personal history of nicotine dependence; Z95.820 Peripheral vascular angioplasty status with implants and grafts

== ENCOUNTER → 2023-02-06 | Outpatient (CLI) | payer MEDICARE ==
[~2023-02-06] MED LIST changes: +ACET1TAB55 PO; +ALDA25TA2 PO; +COLA100C5 PO; +COLC0.6T47 PO; +FERR1TAB8 PO; +GABA-1171 PO; +HEPA500023 SC; +INSUHUMDS SC; +LASI40TA9 PO; +LEVA1.2519 NEB; +LEVAINH INH; +MAGN400T2 PO; +METF500T13 PO; +MOM30SS2 PO; +NICO21PAT TD; +PANT40TA29 PO; +POTA-136 PO; +PRED10TA2 PO; +PRED5TA PO; +SUCR1TA PO; +TORS10TA3 PO; +VANI1CRE5 TOP
== END ==
LOC: M SLEEP HO 10:40
PROVIDERS: ATTEND Internal Medicine Cardiovascular Disease
DX: I27.81 Cor pulmonale (chronic) (principal)